=== PATIENT | male | born 1950 | race Caucasian/White ===

== ENCOUNTER 2020-11-18 13:46 | Emergency (ER) | payer OTHER ==
[~2020-11-18] VITALS: Ht 180.3 cm; Wt 107.0 kg
[2020-11-18] MEDS ORDERED: LISINOPRIL20 MG PO (14:07)
[2020-11-18] MEDS ORDERED: CARDIZEM CD120 MG PO (16:51)
--- NOTE | 2020-11-19 16:04 | EKG ---
[facility] [address] [facility] [place], [place] [address] Signed Atrial flutter with 2:[address] elevation, consider inferior injury or acute infarct ACUTE NV / STEMI Abnormal ECG No previous ECGs available Confirmed by JOAHNN ROSS DO ([id number]) on 11/19/2020 4:04:07 PM Electronically Signed By: JOHANN ROSS DO 11/19/20 1604 PATIENT NAME: LOREN RAMOS Electrocardiogram DATE OF : 50 PHYSICIAN: JOHANN ROSS DO REPORT #: [id number] REPORT IS CONFIDENTIAL AND NOT TO BE RELEASED WITHOUT AUTHORIZATION
== END 2020-11-18 17:02 | disposition home or self-care (01) ==
LOC: ED 13:46
DX: I48.92 Unspecified atrial flutter (principal); J44.9 Chronic obstructive pulmonary disease, unspecified; Z87.891 Personal history of nicotine dependence; Z79.899 Other long term (current) drug therapy
CPT/HCPCS: 71045; 80053; 83735; 84484; 85025; 93005; 93010; 96374; 99285-25

== ENCOUNTER 2021-02-10 14:10 | Inpatient (IN) | payer MEDICARE, OTHER ==
[~2021-02-10] VITALS: Ht 180.3 cm; Wt 107.3 kg
[~2021-02-10 14:10] MED LIST: CARDIZEM CD120 MG PO; LISINOPRIL20 MG PO
--- NOTE | 2021-02-10 17:03 | EKG ---
[facility] [address] [address] Signed Normal sinus rhythm Rightward axis Borderline ECG When compared with ECG of 18-NOV-2020 14:03, Sinus rhythm has replaced Atrial flutter Vent. rate has decreased BY [address] no longer elevated in Inferior leads Confirmed by BRYAN CARDOZA MD ([id number]) on 02/10/2021 5:03:07 PM Electronically Signed By: BRYAN CARDOZA MD 02/10/21 1703 PATIENT NAME: LOREN RAMOS Electrocardiogram DATE OF : 50 PHYSICIAN: BRYAN CARDOZA MD REPORT #: [id number] REPORT IS CONFIDENTIAL AND NOT TO BE RELEASED WITHOUT AUTHORIZATION
--- NOTE | 2021-02-10 20:27 | NUR ---
SHIFT REPORT RECEIVED FROM ADRIENNE MORA. PT IS ALERT/ORIENTED, DENIES PAIN. LUNGS DIM THROUGHOUT, DENIES SOB AND CHEST PAIN, 6L O2 VIA NC IN PLACE, HUMIDIFICATION ADDED BY R.T. HR REGULAR, RATE 80'S. BOWEL TONES ACTIVE, DENIES NAUSEA. PT VOIDED 300ML USING URINAL. SKIN GROSSLY INTACT, ABRASION TO LEFT HAND, PT STATED HE TRIPPED OVER A TOOLBOX AT HOME. 2+EDEMA AND REDNESS NOTED TO BLE. LIMBS ARE COOL, PERPHERAL PULSES STRONG, CAP REFILL SLIGHTLY DELAYED IN BLE. PLAN OF CARE DISCUSSED WITH PT, QUESTIONS ANSWERED. PT DENIES FURTHER NEEDS AT THIS TIME, CALL LIGHT WITHIN REACH.
--- NOTE | 2021-02-10 20:40 | NUR ---
PT DESATURATING TO 85%, SWITCHED OXYGEN TO 8L OXYMASK.
--- NOTE | 2021-02-10 21:20 | NUR ---
375ML URINE EMPTIED FROM URINAL. PT RESTING, CONTINUES TO DENY NEEDS. SPO2:91% ON 8L OXYMASK.
--- NOTE | 2021-02-10 21:55 | NUR ---
IN TO ADJUST PULSE OX, SWITCHED TO STICKER PROBE. URINAL EMPTIED, URINE APPEARING MORE DILUTE IN COLOR. PT STATES THAT HE IS RESTING WELL AND BREATHING EASILY. DENIES FURTHER NEEDS.
--- NOTE | 2021-02-11 00:15 | NUR ---
ASSESSMENT COMPLETED. PT CONTINUES TO DENY PAIN AND STATES HE FEELS THAT HE IS RESTING WELL. LUNGS REMAIN DIM, 8L O2 VIA OXYMASK IN PLACE, DENIES CHEST PAIN AND SOB. DENIES NAUSEA. EXTREMITIES FEEL WARM TO TOUCH NOW AND CAP REFILL NO LONGER APPEARS DELAYED IN BLE. EDEMA UNCHANGED TO BLE. IV INTACT, SALINE LOCKED. PT DENIES NEEDS AT THIS TIME, CALL LIGHT WITHIN REACH.
--- NOTE | 2021-02-11 01:59 | NUR ---
PT RESTING WITH EYES CLOSED, NO APPARENT DISTRESS. RESPIRATIONS EVEN AND UNLABORED. VITAL SIGNS STABLE.
--- NOTE | 2021-02-11 02:16 | NUR ---
PT SPO2 WAS 86-88%, INCREASED OXYGEN TO 9L AND SPO2 NOW 92%.
--- NOTE | 2021-02-11 04:50 | NUR ---
ASSESSMENT COMPLETED AND UNCHANGED. PT REPORTS RESTING COMFORTABLY AND DENIES ANY COMPLAINTS. OXYGEN REMAINS AT 9L VIA NC.
--- NOTE | 2021-02-11 07:26 | NUR ---
RECIEVED REPORT FROM COMPLIANCE TECHNICIAN. PT LAYING IN HIS BED WITH MONISHA AT BED SIDE. PT AWAKE WITH HEAD OF BED ELEVATED. ORDERED BREAKFAST. PT OXYGEN LEVELS DROP TO MID 80S WITH EXERTION OF TALKING. ASSISTED PT IN USING BEDSIDE URINAL. PT REQUESTED TO SIT UP IN THE CHIAR FOR BREAKFAST. NO OTHER CONCERNS AT THIS TIME. CALL LIGHT WITHIN REACH. WILL CONTINUE TO MONITOR CLOSELY FOR CHANGES.
--- NOTE | 2021-02-11 07:30 | NUR ---
PATIENT SHIFT REPORT RECIEVED FROM ELECTRICIAN WIRING RN. PATIENT RESTING I NBED AT THIS TIME. PATIENT REMAINS ON 9L OXYMASK. PATIENT CALLS APPROPRIATELY. WILL CONTINUE TO CLOSELY MONITOR.
--- NOTE | 2021-02-11 08:00 | NUR ---
PATIENT UP TO THE CHAIR WITH RN ASSIST. PATIENT STATES "I AM A LITTLE WEAK". PATIENT NOW RESTING IN THE CHAIR. REVIEWED PLAN OF CARE WITH PATIENT. SPOEK WITH RT HE WILL PLACE PATIENT ON THE HIGH FLOW OXYGEN CANNULA TO ALLOW PATIENT TO EAT BREAKFAST. PATIENT AGREEABLE WITH PLAN OF CARE. WILL CONTINUE TO CLOSELY MONITOR.
[2021-02-11] MEDS ORDERED: ASPIRIN EC325 MG PO (09:16)
[2021-02-11] MEDS ORDERED: DILTIAZEM 24HR120 MG PO (09:16)
--- NOTE | 2021-02-11 09:35 | NUR ---
Pt lives in [place] in his 2 story home with his life partner Melonie. He uses both floors. Has hand rails. Does not use DME Pt. would like to have a POLST form completed. Reviewed wishes and pt would like to have 2 rounds of cpr if in the hospital; otherwise, if at home or downtown he does not want anything done. Does not want a feeding tube or a intubation. 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 Plans on dc to home.
--- NOTE | 2021-02-11 10:00 | NUR ---
PATIENT BACK TO BED FOR AN ECHO AT THIS TIME. WILL CONTINUE TO CLSOELY BENIGNO.
--- NOTE | 2021-02-11 10:08 | NUR ---
ASSISTED PT TO BED FROM CHAIR. PT OXYGEN DROPPED TO 89% WHILE GETTING UP AND MOVING FROM CHAIR TO BED. REQUESTED PT TAKE A FEW DEEP BREATHS AND OXYGEN WENT UP TO 92%. IMAGING IN WITH PT TO DO A ECHO. CALL LIGHT WITHIN [facility]. NO CONCERNS AND QUESTIONS AT THIS TIME. WILL CONTINUE TO MONITOR CLOSELY.
--- NOTE | 2021-02-11 10:53 | NUR ---
ASSISTED PT WITH MEDICATION TO HELP REDUCE HIS POTATIUM LEVEL. READ MENU TO PATIENT AND ORDERED PT LUNCH. PT REQUESTED ASSSISTANCE TO THE CHAIR FOR LUNCH. REMINDED PT TO CONTINUE BREATHING THROUGH HIS NOSE AND NOT HIS MOUTH. PT STRUGGLES WITH KEEPING OXYGEN PROBE IN PLACE ANS SWITCHED TO A PROBE ON PATIENTS EAR. CALL LIGHT WITHIN REACH. WILL CONTINUE TO MONITOR CLOSELY.
--- NOTE | 2021-02-11 12:30 | NUR ---
PATIENT SITTING UP IN THE CHAIR AT THIS TIME. PATIENT VISITING WITH STAFF. ALL QUESTIONS ANSWERED. BLOOD SUGAR DONE AND LUNCH AT THE BEDSIDE. WILL CONTINUE TO CLOSELY MONITOR.
--- NOTE | 2021-02-11 13:30 | NUR ---
PATIENT REPORT GIVEN TO LATOYA DELEON. LATOYA WILL BE TAKING OVER CARE OF THIS PATIENT AT THIS TIME. WILL CONTINUE TO CLOSELY MONITOR.
--- NOTE | 2021-02-11 13:45 | NUR ---
PT APPEARS WEAK WHEN TRYING TO MOVE TO THE BEDSIDE COMMODE. ONE PERSON ASSIST. PT FOLLOWS DIRECTION WELL. CALL LIGHT WITHIN REACH.
--- NOTE | 2021-02-11 14:17 | NUR ---
PT WAS ABLE TO AMBULATE TO BEDSIDE COMMODE. PT DENIES ANY PAIN OR NAUSEA. PT SITTING BACK IN THE CHAIR. VITALS STABLE, NC AIRFLOW 9L, SP02 93%. CALL LIGHT WITHIN REACH.
--- NOTE | 2021-02-11 14:58 | NUR ---
PT ALERT, ORIENTED AND SITTING IN CHAIR USING O2 NC. PT SHARED THAT HE WANTS TO CONTINUE TRAVELING WITH IS SIG OTHER AFSHIN. PT WOULD OCCASIONALLY GET DETAILS CONFUSED-MOSTLY DATES AND TIMELINES. SHARED PAULETTE BACKGROUOND, WISHES HIS EXPERIENCE WOULD HAVE BEEN DIFFERENT. PT SAID HE DOESN'T PRAY BUT WANTED ME TO AND TO PRAY FOR PEOPLE-THEY NEED HELP.GAVE PT G.POST AND BLESSING. WILL CONTINUE TO FOLLOW
--- NOTE | 2021-02-11 15:45 | NUR ---
PT IS SLIGHTLY WEAK WHEN AMBULATING TO THE BEDSIDE COMMODE. LAYING BACK DOWN AND CPAP PLACED, SP02 96%. HANDS HAVE SLIGHT TREMOR/ SHAKING RANDOMLY WHEN AT REST. PT STATES IT HAS BEEN HAPPENING FOR ABOUT ONE MONTH. DENIES ANY PAIN OR NAUSEA. CALL LIGHT WITHIN REACH.
--- NOTE | 2021-02-11 15:47 | NUR ---
Heart Failure Nurse Note Spoke to patient and S.O. concerning daily heart failure,symptom monitoring, daily weights, rationale for low sodium diet, and med management. Has scales but he cannot read them due to vision changes. They agree to obtain new easy to read digital scales and monitor QAM. Unfamiliar with low sodium diet. Will give handouts on low sodium grocery list and flavor options. Do make most meals at home. Does not currently have formal method of remembering pills. Agrees to accept 7 day pill reminders. Will review Zones magnet with patient again. Recommend follow up within 7 days of DC This service will call patient post DC.
[2021-02-11] MEDS ORDERED: TRIAMCINOLONE A15 G1 TOP (15:55)
--- NOTE | 2021-02-11 15:56 | NUR ---
MED REC COMPLETE
--- NOTE | 2021-02-11 16:34 | NUR ---
PT ABLE TO AMBULATE FROM CHAIR TO BED TO ALLOW RT TO PLACE BIPAP ON PT FOR BREATHING TREATMENT. REPLACED OLD SOCKS WITH NEW SOCKS. PT IS SITTING UP IN BED. FAMILY MEMBER IN ROOM WITH HIM. CALL LIGHT WITHIN REACH. RT STILL IN ROOM WITH PT.
--- NOTE | 2021-02-11 18:00 | NUR ---
PT LAYING DOWN, DAUGHTER SALEEM IN THE ROOM. REPLACED CPAP WITH 9L NC. CALL LIGHT WITHIN REACH. SALEEM GIVEN FULL UPDATE, ALL QUESTIONS ANSWERED.
--- NOTE | 2021-02-11 20:15 | NUR ---
SHIFT REPORT RECEIVED FROM ADRIENNE KLEIN. PT CALLED NEEDING TO HAVE BM. UP TO BSC WITH SBA AT THIS TIME. CALL LIGHT WITHIN REACH, PT WILL CALL WHEN FINISHED.
--- NOTE | 2021-02-11 20:30 | NUR ---
PATIENT HAD MEDIUM SIZE LIQUID STOOL. PATIENT BACK IN BED. REQUESTING A SNACK. GEOTHERMAL OPERATIONS MANAGER DELIVERED PM SNACK. PATIENT SITTING UNRIGHT IN BED. O2 IN PLACE. CALL LIGHT IN REACH.
--- NOTE | 2021-02-11 21:13 | NUR ---
ASSESSMENT COMPLETED. PT SEEMS SOMEWHAT FORGETFUL TONIGHT, REPEATS QUESTIONS BUT IS OTHERWISE ORIENTED. DENIES PAIN. LUNGS DIM THROUGHOUT, 9L VIA HIGH FLOW NC IN PLACE, DENIES SOB. HR REGUALR, RATE 100-108. BOWEL TONES ACTIVE, DENIES NAUSEA. SKIN GROSSLY INTACT, EDEMA PRESENT IN BLE. EVENING MEDICATIONS TAKEN WITHOUT ISSUE, FRESH ICE WATER PROVIDED. FINSHED 100% OF SANDWICH BOX. PT DENIES FURTHER NEEDS AT THIS TIME, CALL LIGHT WITHIN REACH. LIGHTS DIMMED PER REQUEST.
--- NOTE | 2021-02-11 22:06 | NUR ---
PT DESATURATED TO 84% WITH NC REMAINING IN PLACE. PT AGREEABLE TO WEARING CPAP AT THIS TIME.
--- NOTE | 2021-02-12 00:42 | NUR ---
PT CALLED, WOKE UP SLIGHTLY CONFUSED STATES "I'M TRYING TO FIGURE OUT IF I'M ALIVE OR ." PT ANSWERS ALL QUESTIONS APPROPRIATELY AND IS ORIENTED X4. USED URINAL AND LAYED BACK DOWN IN BED. BIPAP IN PLACE, PT TOLERATING WELL. REMAINDER OF ASSESSMENT UNCHANGED. CALL LIGHT WITHIN REACH.
--- NOTE | 2021-02-12 01:54 | NUR ---
PT APPEARS TO BE SLEEPING AT THIS TIME, BIPAP REMAINS IN PLACE. NO APPARENT DISTRESS, RESPIRATIONS EVEN AND UNLABORED.
--- NOTE | 2021-02-12 02:19 | NUR ---
SPO2 NOTED TO BE 86-88% WHILE ON BIPAP. INCREASED FIO2 TO 50% AND NOTIFIED R.T.
--- NOTE | 2021-02-12 04:44 | NUR ---
PT NEEDED TO USE BATHROOM, UP TO BSC WITH SBA. HAD MEDIUM SIZED LIQUID STOOL AND VOIDED 300ML. ASSESSMENT COMPLETED. PT BACK ON HIGH FLOW NC AT 9L WITH HUMIDITY. CONTINUES TO DENY SOB. LUNGS SOMEWHAT MORE COARSE IN UPPERS, OTHERWISE ASSESSMENT UNCHANGED. WARM BLANKET PROVIDED PER REQUEST. CALL LIGHT WITHIN REACH.
--- NOTE | 2021-02-12 06:11 | NUR ---
PT RESTING IN BED, 9L O2 VIA HIGH FLOW NC REMAINS IN PLACE. NO APPARENT DISTRESS, RESPIRATIONS EVEN AND UNLABORED.
--- NOTE | 2021-02-12 07:16 | NUR ---
PT CALLED, UP TO CHAIR WITH SBA. URINAL EMPTIED. PT'S SON IN ROOM VISITING. PT'S DAUGHTER CALLED AND UPDATE GIVEN
--- NOTE | 2021-02-12 08:00 | NUR ---
PT IS ALERT AND ORIENTED SITTING UP IN THE CHAIR. SON DESHAWN IN THE ROOM WITH HIM. PT IS EATING HIS BREAKFAST INDEPENDENTLY. LINENS CHANGED, NEW SOCKS PLACED. CALL LIGHT WITHIN REACH. NO DESIRE TO VOID AT THIS TIME. PT STATES HE FEELS A LOT BETTER AFTER USING CPAP AT NIGHT TIME. PT HAS NC 9L, SP02 96%. PT DENIED NAUSEA OR PAIN.
--- NOTE | 2021-02-12 10:12 | NUR ---
pt o2 turned down to 6L via high flow NC from 9L. pt o2 sats are 96%
--- NOTE | 2021-02-12 10:16 | NUR ---
AT APROX 1000 PT SHOWED SVT, NOTIFIED. 5MG IV LOPPRESSOR GIVEN PER ORDERS AT 1005. HR CONVERTED BACK TO AFIB. WITH RATE CONTROLLED 90'S-100'S. PT DENIES ANY SYMPTOMS. VITALS ARE WNL AT THIS TIME.
--- NOTE | 2021-02-12 11:04 | NUR ---
manual bp taken 100/68 on rt arm.
--- NOTE | 2021-02-12 12:05 | NUR ---
PT SP02 88%, INCREASED NC FROM 6L TO 7L. SP02 93%. PT SITTING UP IN CHAIR. CALL LIGHT WITHIN REACH.
--- NOTE | 2021-02-12 12:20 | NUR ---
PT SITTING UP IN CHAIR, COOPERATIVE AND ABLE TO FOLLOW DIRECTIONS WHEN PERFORMING HIS ASSESSMENT. URINAL EMPTIED. PT IS EATING LUNCH. CALL LIGHT WITHIN REACH.
--- NOTE | 2021-02-12 12:44 | NUR ---
PT SP02 STATS DECREASED TO 85-88% WHILE EATING. INCREASED NC FROM 7L TO 9L WHILE HE EATS. SP02 91%. PT SITTING UP AT HIS CHAIR. CALL LIGHT WITHIN REACH.
--- NOTE | 2021-02-12 15:59 | NUR ---
PT WEAK WHEN AMBULATING FROM CHAIR TO BED. SP02 DROPPED TO HIGH 70'S DURING AMBULATION. RAISED NC TO 7L, SP02 94% AT THIS TIME. PT IN BED, CALL LIGHT IN REACH. IN ROOM. URINAL EMPTIED AND RECORDED.
--- NOTE | 2021-02-12 20:30 | NUR ---
SHIFT REPORT RECEIVED FROM SN LE AND ADRIENNE KLEIN. ASSESSMENT COMPLETED. PT WAS SLEEPING, WOKE EASILY WHILE I WAS IN ROOM. ORIENTED X4, DENIES PAIN, REPORTS FEELING TIRED. LUNGS DIM, 6L HIGH FLOW NC IN PLACE, SWITCHED TO BIPAP /8 @ 50% AFTER ASSESSMENT FOR SLEEP. HR IRREGULAR, RATE IN 90'S, SCHEDULED MEDS GIVEN. BOWEL TONES ACTIVE, DENIES NAUSEA. URINAL EMPTIED, URINE SLIGHTLY CONCENTRATED IN APPEARANCE. IV PATENT AND INTACT. DRESSING TO LEFT HAND CHANGED, SKIN TEAR CLEANSED WITH NS, BACITRACIN APPLIED, WOUND COVERED WITH NON-ADHERANT PAD AND ALLEVYN. 2+EDEMA TO BLE, PERIPHERAL PULSES STRONG, CAP REFILL SLIGHTLY DELAYED IN BLE. PT DENIES NEEDS AT THIS TIME. FRESH ICE WATER PROVIDED. CALL LIGHT WITHIN REACH.
--- NOTE | 2021-02-12 22:23 | NUR ---
PT APPEARS TO BE SLEEPING AT THIS TIME, BIPAP REMAINS IN PLACE. NO APPARENT DISTRESS, RESPIRATIONS EVEN AND UNLABORED. VITAL SIGNS STABLE.
--- NOTE | 2021-02-13 00:11 | NUR ---
PT CONTINUES TO SLEEP SOUNDLY WITH BIPAP IN PLACE, SETTINGS UNCHANGED. RESPIRATIONS EVEN AND UNLABORED, PT DOES NOT APPEAR IN ANY DISTRESS. VITAL SIGNS STABLE. WILL ALLOW FOR REST AND CONTINUE TO MONITOR.
--- NOTE | 2021-02-13 01:15 | NUR ---
PT CALLED NEEDING TO VOID. SWITCHED HIM FROM BIPAP TO 6L HIGH FLOW NC AND PT USED URINAL AT SIDE OF BED. PT CONTINUES TO DENY SOB OR PAIN. 0200 MEDS GIVEN NOW. PT BACK TO BED AND BACK ON BIPAP, SETTINGS UNCHANGED. WARM BLANKET PROVIDED PER REQUEST. CALL LIGHT WITHIN REACH.
--- NOTE | 2021-02-13 04:11 | NUR ---
PT APPEARS TO BE SLEEPING SOUNDLY AT THIS TIME WITH BIPAP IN PLACE. VITAL SIGNS STABLE. WILL DEFFER ASSESSMENT AT THIS TIME TO ALLOW FOR REST.
--- NOTE | 2021-02-13 05:20 | NUR ---
PT CALLED, READY TO TAKE OFF BIPAP. PLACED ON 6L HIGH FLOW NC. STANDING WEIGHT OBTAINED. ASSESSMENT COMPLETED AND UNCHANGED. FRESH ICE WATER AND A CUP OF COFFEE PROVIDED. PT DENIES FURTHER REQUESTS, CALL LIGHT WITHIN REACH.
--- NOTE | 2021-02-13 05:56 | NUR ---
INCREASED O2 TO 8L FOR SPO2 88%, SPO2 NOW 90%. URINAL EMPTIED.
--- NOTE | 2021-02-13 08:00 | NUR ---
PT SITTING AT THE SIDE OF BED EATING HIS BREAKFAST. SON DESHAWN IN THE ROOM WITH HIM. SP02 93% ON 8L NC WHILE HE EATS. PT STATES HE SLEPT WELL WITH CPAP MACHINE. SCHEDULED MEDICATIONS GIVEN. CALL LIGHT WITHIN REACH.
--- NOTE | 2021-02-13 09:00 | NUR ---
PT TRAY REMOVED BY SN. DEMARIO HESS IN THE ROOM. PT GIVEN A WARM WASH CLOTH FOR HIS FACE. APPLIED LOTION TO LEGS BILATERALLY. PT COOPERATIVE AND FOLLOWING DIRECTIONS WELL.
--- NOTE | 2021-02-13 11:20 | NUR ---
PT SITTING IN CHAIR, WAS ABLE TO USE THE URINAL. URINAL EMPTIED. KELSEY IN THE ROOM WITH HIM. DR. SCHULER IS IN UPDATING AND ASSESSING PT.
--- NOTE | 2021-02-13 12:00 | NUR ---
PT IN CHAIR EATING HIS LUNCH. DENIES PAIN OR NAUSEA. NO DESIRE TO VOID AT THIS TIME. SCHEDULED MEDICATIONS GIVEN. CALL LIGHT WITHIN REACH.
--- NOTE | 2021-02-13 13:10 | NUR ---
PT ABLE TO USE BEDSIDE COMMODE, SEEMS FATIGUES WHEN AMBULATING. PT BACK IN CHAIR. DENIES PAIN OR NAUSEA OR SOB. CALL LIGHT WITHIN REACH. WATER AT BEDSIDE TABLE.
--- NOTE | 2021-02-13 14:15 | NUR ---
FROM APPROXIMATLY 1340 TO 1405 PT UP AND AMBULATED TO ROOM 126 FOR SHOWER, PT ABLE TO SHOWER SELF WHILE SITTING IN SHOWER CHAIR. PT ON 4L O2 VIA REGULAR NC DURING THIS ACTIVITY. PT NOTED TO HAVE INCREASED WOB WITH ACTIVITY, HOWEVER IS ABLE TO EDDIE. ALL LINENS CHANGED ON BED AND IN CHAIR.
--- NOTE | 2021-02-13 15:12 | NUR ---
PT IV SITE IS INTACT, NO REDNESS OR SWELLING NOTED, FLUSH INFUSES EASILY, 80 MG IV LASIX GIVEN. PT ALERT AND ORIENTED X4, COOPERATIVE. PT DENIES PAIN AND NAUSEA. SOB NOTED WITH ACTIVITY, NONE WHILE AT REST.
--- NOTE | 2021-02-13 15:15 | NUR ---
PT O2 TITRATED DOWN TO 5L VIA HIGH FLOW NC.
--- NOTE | 2021-02-13 15:32 | NUR ---
PT ABLE TO AMBULATE ONE LAP IN THE HALLWAY WITH STANDBY ASSIST AND WALKER FOR BALANCE. PT ON 4L O2 VIA NC DURING AMBLATION, O2 SATS WERE LOW A 83% AND HIGH 90%.
--- NOTE | 2021-02-13 16:14 | NUR ---
PT SITTING UP IN CHAIR. SITTING IN THE COUCH NEXT TO HIM. VERBALLY SPOKE TO PATIENT ABOUT GOALS WITH AMBULATION. PT VERBALIZED UNDERSTANDING. COOPERATIVE WHEN PERFORMING ASSESSMENT AND ABLE TO FOLLOW DIRECTIONS. PT SEEMS FATIGUED AND TIRED. PT DENIES PAIN. CALL LIGHT WITHIN REACH.
--- NOTE | 2021-02-13 16:32 | NUR ---
PT ABULATED WITH SBA DOWN THE CCU HALLWAY AND BACK. PLACED ON 4L ON REGULAR NASAL CANULA. 02 STATS DECREASED TO THE MID 70S DURING AMBULATION. PT WAS SLIGHTY UNSTEADY DURING ACTIVITY, INCREASED SOB. PT BACK IN CHAIR. NC HIGH FLOW 5L PLACED BACK ON, SP02 91%. IN THE ROOM WITH HIM. PT DENIES CHEST PAIN, BUT STATES HE IS OUT OF BREATH BUT IT IS TOLERABLE. CALL LIGHT WITHIN REACH. PT WAS ABLE TO AMBULATE A FURTHER DISTANCE THAN THE PREVIOUS ACTIVITY.
--- NOTE | 2021-02-13 16:58 | NUR ---
PT TITRATES DOWN FROM 5L HF NC TO 4L HF NC. SPO2 94% AT THIS TIME. WILL CONTINUE TO MONITOR. VERBALIZED GOAL FOR AMBULATION ACTIVITY AND OXYGEN LEVEL GOALS. PATIENT AND VERBALIZED UNDERSTANDING.
--- NOTE | 2021-02-13 17:45 | NUR ---
PT READY FOR AMBULATION ACTIVITY DOWN THE [place]OL[place]. 4L REGULAR NC PLACED. PATIENT USING WALKER WITH SBA WITH CHORDS AND O2 TANK. PT STEADY AND WALKING FAST PACED. PT DESTATS TO MID 70S DURING ACTIVITY. PT BACK IN ROOM, 4L HF NC PLACED. PT IS BACK IN BED LAYING DOWN. PT FATIGUED WITH INCREASED SOB. DEEP BREATHING ENCOURAGED. CALL LIGHT WITHIN REACH.
--- NOTE | 2021-02-13 19:35 | NUR ---
REPORT RECEIVED FROM INA RN, WILL CONTINUE PLAN OF CARE.
--- NOTE | 2021-02-13 20:10 | NUR ---
THIS RN IN TO ASSESS PT AND ADMINISTER ORDERED MEDICATIONS. PT LAYING IN BED ALERT AND ORIENTED ON 4L O2 NC. PT REPORTS NO PAIN OR SOB. MEDICATIONS ADMINISTERED (SEE MAR) AND PT ASSESSMENT COMPLETE AT THIS TIME. LUNGS SOUND DIMINISHED IN ALL REGIONS, EDEMA PRESENT IN LOWER LEGS BILAT. PT DENIES NUMBNESS OR TINGLING. PT REPORTS NO FURTHER NEEDS AT THIS TIME WHEN ASKED. CALL LIGHT IN REACH, BED IN LOWEST POSITION. PT ON 4L O2 NC. WILL CONTINUE PLAN OF CARE.
--- NOTE | 2021-02-13 20:30 | NUR ---
THIS RN IN TO CHECK ON PT. PT SITTING AT THE SIDE OF THE BED ALERT AND ORIENTED AND HAD JUST FINISHED VOIDING INTO THE URINAL. HEART LEADS REPLACED AT THIS TIME DUE TO POOR READINGS. PT DENIES ANY SOB OR LIGHTHEADEDNESS AT THIS TIME WHILE ON THE 4L O2 NC. PT NOW LAYING IN BED AND REPORTS NO FURTHER NEEDS WHEN ASKED. WILL CONTINUE PLAN OF CARE. CALL LIGHT IN REACH, BED IN LOWEST POSITION.
--- NOTE | 2021-02-13 23:57 | NUR ---
RESPONDED TO PT CALL LIGHT. PT SITTING AT SIDE OF BED AND HAD FINISHED USING THE URINAL. PT STATED HE HAD VOIDED AND WANTED TO ENSURE THAT HIS BIPAP WAS ON CORRECTLY BEFORE GOING BACK TO SLEEP. PT ASSESSED AT THIS TIME AND VITALS TAKEN. PT DENIES PAIN AT THIS TIME OR SOB. PT REPORTED NO FURTHER NEEDS AND WENT BACK TO SLEEP AFTER BEING ASSESSED. CALL LIGHT IN REACH, BED IN LOWEST POSITION, WILL CONTINUE PLAN OF CARE.
--- NOTE | 2021-02-14 02:21 | NUR ---
THIS RN IN TO ADMINISTER ORDERED MEDICATIONS. PT SLEEPING IN BED ON BIPAP. PT AWOKE EASILY AND WAS ABLE TO TAKE PO MEDICATIONS. PT DENIES PAIN WHEN ASKED AT THIS TIME. PT PLACED BACK ON BIPAP AT THIS TIME AND RETURNED TO SLEEP. SPO2 AT 96% ON BIPAP AT 50% FIO2. PT REPORTED NO FURTHER NEEDS WHEN ASKED ASIDE FROM HELPING HIM COVER BACK UP WITH BLANKETS. PT NOW LAYING IN BED ON BIPAP, BED IN LOWEST POSITION, CALL LIGHT IN REACH. WILL CONTINUE PLAN OF CARE.
--- NOTE | 2021-02-14 03:55 | NUR ---
patient up to bedside to use urnal. patient tolerated well. back on cpap and resting with hob elevated. call light in reach.
--- NOTE | 2021-02-14 06:41 | NUR ---
THIS RN IN TO ASSESS PT. PT LAYING IN BED AWAKE AND ALERT ON BIPAP. PT REPORTS NO PAIN WHEN ASKED AND DENIES SOB. VITALS TAKEN AND ASSESSMENT COMPLETED AT THIS TIME. NEW ALLEVYN PLACED ON PTS SKIN TEAR IN THE LEFT HAND. SKIN UNDER TEAR CONTAINS NO DRAINAGE. PT VOIDED AFTER ASSESSMENT INTO URINAL AND SAT UP ON SIDE OF THE BED. HR MAINTAINED IN THE 70-80'S. PT DENIED LIGHTHEADEDNESS AND DIZZYNESS WHEN DOING SO. SPO2 STATED LOW 80% BUT WAVEFORM WAS POOR. ONCE PT WAS RESTING SPO2 READ IN THE MID 90%. PT NOW BACK IN BED AWAKE AND ALERT ON BIPAP. PT REPORTS NO FURTHER NEEDS WHEN ASKED, SPO2 AT 99%. WILL CONTINUE PLAN OF CARE. CALL LIGHT IN REACH, BED IN LOWEST POSITION.
--- NOTE | 2021-02-14 07:32 | NUR ---
pt off bipap on nc high flow 6L. pt's son is at the bedside. pt alert and oriented x4.
--- NOTE | 2021-02-14 08:08 | NUR ---
PT SITTING UP IN BED, SON DESHAWN IN THE ROOM. ASSESSMENT AND VITALS OBTAINED. PT ABLE TO STAND ON STANDING SCALE FOR WEIGHT RECORDING. NEW WEIGHT CHARTED AND PLACED ON PT BOARD IN ROOM. PT ABLE TO AMBULATE WITH SBA TO THE CHAIR. ABULATED WELL, PT STEADY DURING ACTIVITY.
--- NOTE | 2021-02-14 09:30 | NUR ---
PT SITTING UP IN BED, SCHEDULED MEDS GIVEN. IN ROOM. NO DESIRE TO VOID AT THIS TIME. PT ATE ALL OF HIS BREAKFAST. BREAKFAST TRAY REMOVED. WATER CUP AT BEDSIDE TABLE.
--- NOTE | 2021-02-14 10:26 | NUR ---
PT SITTING UP IN CHAIR. IN THE ROOM. DR. SCHULER IN TO SPEAK TO PATIENT AND . TITRATED HF NC FROM 6L TO 5L, SP02 94% AT THIS TIME. WILL CONTINUE TO TITRATE DOWN EVERY 10 MINUTES PER MD ORDERS AND CONTINUE TO MONITOR. VERBALIZED AMBULATION ACTIVITY WITH PT, PT VERBALIZED AND UNDERSTANDING OF DAY PLAN. ALL QUESTIONS ANSWERED.
--- NOTE | 2021-02-14 10:42 | NUR ---
TITRATED HIGH FLOW NC FROM 5L TO 4L. SP02 93%. PT SITTING UP IN CHAIR. CALL LIGHT WITHIN REACH.
--- NOTE | 2021-02-14 11:00 | NUR ---
PT READY FOR AMBULATION ACTIVITY. PT USES WALKER WITH SBA. 4L REGULAR NC PLACED DURING ACTIVITY. PT SLIGHTY WALKS STEADY, SLOWER PACED. 02 STATS HIGH 80'S DURING ACTIVITY. PT WALKED DOWN CCU HALLWAY AND BACK TO HIS ROOM. PT HAS SLIGHT INCREASE SOB, RECOVERS WELL. SWITCHED BACK TO 4L HF NC. SP02 91%. PATIENT DENIES PAIN. PT SITTING IN CHAIR. CALL LIGHT WITHIN REACH. DEEP BREATHING ENCOURAGED.
--- NOTE | 2021-02-14 13:00 | NUR ---
PT HAS REMAINED ON 4L HF NC, DURING AMBULATION ACTIVITY IS SWITCHED TO 4L REGULAR NC. SP02% MID TO HIGH 80'S DURING ACTIVITY. PT ABLE TO CONTROL HIS PACE AND BREATHING. PT AMBULATED WITH SBA OF NURSE AND STUDENT NURSE WITH CHORDS. PT WALKED STEADY DOWN THE CCU HALLWAY AND BACK TO CHAIR. PT PLACED BACK ON 4L HF NC SP02 95%. PT DENIES PAIN. CALL LIGHT WITHIN REACH.
--- NOTE | 2021-02-14 13:58 | NUR ---
PT TITRATED DOWN FROM 4L HF NC TO 3L HF NC, SP02 93% AT THIS TIME. PT SITTING IN CHAIR. DEEP BREATHING ENCOURAGED.
--- NOTE | 2021-02-14 16:19 | NUR ---
[facility] SON DESHAWN IN ROOM WITH HIM. PT HAS 3L HF NC, SP02 92% AT THIS TIME. WILL CONTINUE TO MONITOR. PATIENT DENIES SOB. NO DESIRE TO VOID AT THIS TIME. PT WILL LIKE TO CONTINUE TO SIT IN THE CHAIT UNTIL SON LEAVES THEN HE WOULD LIKE TO WALK. CALL LIGHT WITHIN REACH.
--- NOTE | 2021-02-14 19:45 | NUR ---
PATIENT UP TO THE BATHROOM WITH [employer] ARCHITECT ASSIST. PATIENT DESAT ON 3L NC TO 84% AND HAD DIFFICULTY RECOVERING. INCREASED PATIENT'S O2 TO 8L NC. PATIENT SLOWING RECOVERED TO 90% O2 SAT. PATIENT SWITCHED TO TELE WITH O2 MONITORING. PROVIDED WITH WARM BLANKET. SITTING UP IN BED NOW WATCHING TV. DENIES OTHER NEEDS. CALL LIGHT IN REACH.
--- NOTE | 2021-02-14 20:49 | NUR ---
EVENING MEDS PROVIDED PER ORDER. VS STABLE. PATIENT TOLERATING 4L NC. DENIES FEELING SOB. UP TO THE BEDSIDE TO VOID. DENIES FURTHER NEEDS. MOVES EASILY. LUNG SOUNDS ARE CLEAR, DIM IN THE BASES. ENCOURGAED COUGH AND DEEP BREATHING.
--- NOTE | 2021-02-14 21:43 | NUR ---
PATIENT READY FOR BED. PLACED ON CPAP. TOLERATING WELL. HOB ELEVATED. CALL LIGHT IN REACH.
--- NOTE | 2021-02-14 23:11 | NUR ---
PATIENT UP TO THE BEDSIDE TO VOID. TITRATED TO 8L HIGH FLOW NC. PATIENT TOLERATED WELL WITH LESS DESATURATIONS, ONLY TO 88%. BACK ON BIPAP. HOB ELEVATED.
--- NOTE | 2021-02-15 01:19 | NUR ---
PATIENT UP TO BEDSIDE. VOIDED 350 MLS. PATIENT IS IN GOOD SPIRITS, STATED " I FEEL LIKE I HAVE SOME CONTROL BACK. LIKE I'M GOING TO GET OUT OF HERE SOON."
--- NOTE | 2021-02-15 04:00 | NUR ---
PATIENT REPORTS FEELING VERY WELL THIS MORNING. IS SITTING UP IN BED WATCHING TV. BIPAP OFF AT THIS TIME. TOLERATING 6L NC IN BED, DESATS WITH STANDING AT BEDSIDE TO VOID. LUNG SOUNDS ARE DIMINISHED THORUGHOUT. VS STABLE. IV SITE LEAKING. NEW SITE ESTABLISHED IN RIGHT FOREARM. BUMEX INFUSING PER ORDER. FRESH ICE WATER PROVIDED.
--- NOTE | 2021-02-15 09:10 | NUR ---
IN PATIENT'S ROOM HE IS HAVING ADDITIONAL BLOOD DRAWN THIS AM. PT'S SON IN ROOM WITH HIM. EXTENSIVE DISCUSSION REGARDING CHF AND DIAGNOSIS. PT STATES HE IS FEELING GOOD, BETTER THIS AM, THAN HE HAS BEEN AND IS EAGER TO CONTINUE IMPROVING. BUMEX GTT CONTINUES AT 0.5 MG/HR = 2ML/HR. WILL CONTINUE TO MONITOR.
--- NOTE | 2021-02-15 10:28 | NUR ---
firewall security engineer offered to give pt bed bath and do hair. Pt. refused said he is fine for now maybe tomorrow. firewall security engineer will check back in with pt. later today. no other needs at this time
--- NOTE | 2021-02-15 13:06 | NUR ---
COMPRESSION SOCKS APPLIED TO PATIENT'S LOWER LEGS. PT TOLERATED WELL. PT REMAINS SITTING IN CHAIR AND OXYGEN IS 95% ON 5 L, THEREFORE TURNED DOWN TO 4 L AT THIS TIME. PT REMAINS OFF BUMEX GTT AND WILL HAVE ANOTHER VBG AT 1800 THIS EVENING. PT REMAINS ON TELE #10 IN AN ATRIAL FLUTTER, RATES RANGING FROM 70-80s. CONTINUE TO MONITOR.
--- NOTE | 2021-02-15 14:07 | NUR ---
PT SITTING UP IN CHAIR, ALERT, ORIENTED AND O2 NC IN USE. PT LOOKS AND SOUNDS BETTER, HE ACKNOWLEDGED. THANKED ME FOR STOPPING BY. GAVE BLESSING.WILL FOLLOW NEEDED
--- NOTE | 2021-02-15 15:50 | NUR ---
REPORT GIVEN TO DANN ON MED/SURG AND PATIENT TRANSFERRED TO ROOM 116. PT ABLE TO AMBULATE OVER TO ROOM ON 5 L NC AND TOLERATED THIS WELL. WILL CONTINUE TO MONITOR.
--- NOTE | 2021-02-15 16:19 | NUR ---
ASSUMED CARE OF PT. PT AMBULATED FROM CCU 127 TO ROOM 116 ON MS. PT ORIENTED TO ROOM. PT'S SON AT BEDSIDE.
--- NOTE | 2021-02-15 17:27 | NUR ---
ROUNDED ON PT; PT UP IN CHAIR EATING DINNER. PT ASKS ABOUT FLUID RESTRICTION; EDUCATED ABOUT TOTALS LEFT FOR THE DAY. NEW TV REMOTE LOCATED FOR PT. PT IS JOVIAL AND IN GOOD SPIRITS. PT'S IN ROOM. CALL LIGHT WITHIN REACH.
--- NOTE | 2021-02-15 17:40 | NUR ---
EMPTIED URINAL FOR PATIENT. PATIENTS CALL LIGHT IN REACH NOTHING ELSE NEEDED AT THIS TIME
--- NOTE | 2021-02-15 18:17 | NUR ---
ASSISTED PT TO BED; PT HAD EATEN A LARGE PORTION OF HIS DINNER. LAB DRAW COMPLETED. ASSESSMENT COMPLETE. PT'S LEAVES TO GO HOME AT THIS TIME. CALL LIGHT WITHIN REACH.
--- NOTE | 2021-02-15 18:25 | NUR ---
TELE MONITOR SP02 SHOWS 86% ON 4L NC. HOB ELEVATED MORE, O2 INCREASED TO 5L AND NC PLACED MORE CENTERED IN NARES. PT RECOVERS TO 94% ON 5L.
--- NOTE | 2021-02-15 19:25 | NUR ---
BEDSIDE REPORT RECEIVED FROM ADRIENNE QUIGLEY. pt SLEEPING, SPO2 96% ON TELE CPOX, HR 70. 5L OXYGEN BY NC IN PLACE. CALL LIGHT IN REACH.
--- NOTE | 2021-02-15 21:40 | NUR ---
V/S AND I&O'S DONE. WARM BLANKET PROVIDED. NO OTHER NEEDS.
--- NOTE | 2021-02-15 21:45 | NUR ---
pt SITTING UP IN BED AWAKE. ASSESSMENT COMPLETE. TELE [address], SR 75. CPAP APPLIED AT THIS TIME. CALL LIGHT IN REACH. LIGHTS OFF IN ROOM.
--- NOTE | 2021-02-16 00:40 | NUR ---
CHECKED ON pt. RESTING IN BED WITH BIPAP ON. RR 16. SPO2 98% ON TELE CPOX.
--- NOTE | 2021-02-16 02:15 | NUR ---
CALL LIGHT ANSWERED. BIPAP REMOVED, 5L OXYGEN BY NC APPLIED. pt TO SIDE OF BED FOR VOID AND BACK IN BED. ASSESSMENT COMPLETE. pt STATES TOLERATING BIPAP WELL "I SLEPT REALLY GOOD". EXPIRATORY WHEEZES AUSCULTATED BILATERALLY LOWER LOBES. pt DENIES SOB. RASHMI HOSE ON. BIPAP APPLIED. CALL LIGHT IN REACH.
--- NOTE | 2021-02-16 04:52 | NUR ---
CHECKED ON pt. RESTING IN BED WITH BIPAP ON. SPO2 98% ON BIPAP. EYES CLOSED, BREAHTING UNLABORED.
--- NOTE | 2021-02-16 05:45 | NUR ---
RN ENTERS ROOM AFTER SPO2 READING IN 70S ON TELE 9 CPOX MONITOR. OXYGEN OFF pt, 5L OXYGEN REAPPLIED. SPO2 INCREASES TO <90%. pt RESTING IN BED. VSS. CALL LIGHT IN REACH.
--- NOTE | 2021-02-16 08:12 | NUR ---
PT SITTING IN CHAIR, EATING BREAKFAST, O2 SATS 84-86% ON 5L NC, INCREASED TO 7L HIGH FLOW NC. PT GIVEN I/S AND INSTRUCTED ON USE, PT ABLE TO DEMONSTRATE PROPER USE.
--- NOTE | 2021-02-16 08:26 | NUR ---
PT WAS SITTING UP IN HIS CHAIR. MORNING ASSESSMENT COMPLETED. PT LUNG SOUNDS WERE DEMINISHED. HE HAS BEEN SATING IN THE HIGH 80S LOW 90S. HE WAS ON 5L NASAL CANNULA AND WE PUT HIM UP TO 7L NC. HE WAS EDUCATED ON USING AN IS. HE USED IT TWICE AND WAS TOLD TO DO IT 10 TIMES AN HOUR. MORNING MEDICATIONS PASSED. PT WAS EAGER TO LEARN AND ASKED QUESTIONS ABOUT HIS CARE. PT WAS WEARING TH AND HAS SOME EDEMA IN HIS LEGS. PT STATED IT HAS GONE DOWN AND HE CAN WIGGLE HIS TOES. PT IS ON TELLE #9. SINUS RHYTHM. PT WAS WAITNG FOR HIS SON AND BREAKFAST TO ARRIVE. NO FURTHER NEEDS AT THIS TIME.
--- NOTE | 2021-02-16 09:00 | NUR ---
Notified by Dr. Cramer, pt will need Bipap or Trilogy unit for dc to home. Called and spoke with [facility] and they are no longer doing the overnight oximetry. Called [facility] and they faced th [facility] order form. Form completed by Dr. Cramer and faxed to [facility].
--- NOTE | 2021-02-16 09:37 | NUR ---
PATIENT SITTING UP IN BED. VITALS AND I&O'S CHARTED. CALL LIGHT IN REACH. NOTHING ELSE NEEDED
--- NOTE | 2021-02-16 09:45 | NUR ---
THIS RN INTO ROOM, PATIENT AWAKE SITTING IN BED. PATIENT STATES HE IS FEELING BETTER OVERALL. DISCUSSED ONGOING OXYGEN NEED WITH THE PATIENT. PATIENT STATES HE DOES NOT USE 02 AT HOME IN THE PAST. PATIENT IS WOUNDERING IF HE WILL NEED A CPAP ON DISCHARGE. PER DR. SCHULER PATIENT WILL NEED BIPAP OR TRILOGY UPON DISCHARGE. REQUEST SENT FOR BIPAP SIGNED BY DR. SCHULER TO BE SENT TO [facility]. WILL CONTINUE TO FOLLOW UP WITH PATIENT.
--- NOTE | 2021-02-16 11:13 | NUR ---
PATIENT UP IN CHAIR. PATIENT STATES NOTHING IS NEEDED AT THIS TIME.
--- NOTE | 2021-02-16 11:23 | NUR ---
PT REQUESTING TO COME OFF BIPAP, PLACED ON 5L NC, IN ROOM. PT VOIDED 700ML. PT DENIES OTHER NEEDS AT THIS TIME.
--- NOTE | 2021-02-16 13:12 | NUR ---
PATIENT REFUSED SHOWER/ BED BATH/ SHAMPOO/ STATES HES COMBED HIS HAIR AND THATS FINE FOR TODAY.
--- NOTE | 2021-02-16 13:44 | NUR ---
UNABLE TO VISIT PT DUE TO AGP'S. WILL CHECK BACK AGAIN.
--- NOTE | 2021-02-16 14:07 | NUR ---
PT WAS GIVEN HIS SECOND DOSE OF FUROSIMIDE. PT TOLERATED THIS WELL. IV FLUSHED WITH 10ML NS. GOOD BLOOD RETURN. PT IS USING HIS BIPAP MACHINE AND TOLERATING IT WELL. PT STATED CONCERNS OF NOT WANTING TO . EDUCATION WAS PROVIDED TO THE PATIENT THAT HE IS DOING WELL AND SLOWLY GETTING BETTER. THIS SEEMED TO PUT THE PT AT EASE. NO FURHTER NEEDS AT THIS TIME.
--- NOTE | 2021-02-16 14:28 | NUR ---
PT AFTERNOON ASSESSMENT COMPLETED. LUNG SOUNDS WERE STILL DIMINISHED AND CRACKLES WERE HEARD IN HIS LOWER LOBES. RASHMI HOSE WERE REMOVED. NO FURTHER NEEDS AT THIS TIME.
--- NOTE | 2021-02-16 16:54 | NUR ---
PT OVERALL HAD A GOOD DAY. HE WAS ON 5L NC THIS MORNING SATING IN THE HIGH 80'S LOW 90'S. HE WENT ON HIS BIPAP FOR MOST OF THE DAY AND TOLERATED IT WELL. ONCE HE WAS OFF THE BIPAP HE WAS PUT ON 4L NC AND SATING IN THE LOW 90S. HIS LUNG SOUNDS WERE DIMINISHED WITH CRACKLES IN THE LOWER LOBES. PT HAD EDEMA IN HIS LOWER EXTREMITIES. FAN WAS DC BUT LEFT ON THE 02. RASHIM CRISTINA WERE DC'D WELL. PT IS ON DIURETICS TO HELP WITH SWELLING. PT IS A ONE PERSON STANDBY ASSIST. PT USES THE URINAL AT THE EDGE OF THE BED. PT IS ON A 1600 FLUID RESTRICTION. HE HAS A 22GA IV IN THE RIGHT FOREARM THAT IS SALINE LOCKED.
--- NOTE | 2021-02-16 17:48 | NUR ---
PT WAS HELPED UP TO THE BATHROOM. HE THEN GOT INTO BED FOR THE EVENING. PT IS BACK ON THE BIPAP MACHINE. PT IS RESTING IN BED. NO FURTHER NEEDS AT THIS TIME.
--- NOTE | 2021-02-16 19:24 | NUR ---
RECEIVED REPORT FROM ADRIENNE NGO. pt RESTING IN BED WITH BiPAP ON. CALL LIGHT WITHIN REACH.
--- NOTE | 2021-02-16 21:57 | NUR ---
IN TO DO ASSESSMENT. pt RESTING IN BED ON BiPAP. INSTRUCTED pt ON HOW TO REMOVE BiPAP, pt DEMONSTRATED SKILL. REPORTED HE IS FEELING BETTER THAN WHEN HE CAME IN. SATS MID 90'S ON 3L O2 VIA NC. ASSESSMENT DONE. LUNGS DIM. SWELLING NOTED IN BLE. pt REPORTED THAT LEFT TOES FEEL LESS TIGHT THAN THIS AM. RIGHT FOOT SWELLING MORE THAN LEFT. URINAL EMPTIED. DISCUSSED FLUID RESTRICTION AND PLAN OF CARE. ALL QUESTIONS ANSWERED. CALL LIGHT WITHIN REACH. pt PLACED BiPAP INDEPENDENTLY.
--- NOTE | 2021-02-17 02:07 | NUR ---
ROUNDED ON pt. RESTING IN BED WITH BiPAP ON. EYES CLOSED, RESPIRATIONS REGULAR AND UNLABORED. CALL LIGHT WITHIN REACH.
--- NOTE | 2021-02-17 03:34 | NUR ---
CALL LIGHT ON. pt OFF BiPAP, ASSISTED WITH NC 3L SATS 93%. BREAKFAST ORDERED. AM CARES DONE. ASSESSMENT DONE, NO CHANGES NOTED. SITTING ON BED WATCHING TV. CALL LIGHT WITHIN REACH.
--- NOTE | 2021-02-17 03:54 | NUR ---
SATS DROPPING TO 84%. pt WOKE TO VOICE. NC ON INCREASED TO 4L. pt STATES HE WANTS TO STAY AWAKE AND WATCH TV. REFUSED BiPAP AT THIS TIME. SATS 94%. CALL LIGHT WITHIN REACH.
--- NOTE | 2021-02-17 04:36 | NUR ---
RT IN TO DO ASSESSMENT. pt NOW ON BiPAP. RESTING IN BED WITH EYES CLOSED, RESPIRATIONS REGULAR AND UNLABORED. SATS 95%. CALL LIGHT WITHIN REACH.
--- NOTE | 2021-02-17 05:49 | NUR ---
SAT MONITOR OFF WHILE pt URINATED. VITALS DONE. DAILY WT. pt DENIES NEEDS AT THIS TIME. CALL LIGHT WITHIN REACH.
--- NOTE | 2021-02-17 08:15 | NUR ---
PT WAS SITTING UP IN THE CHAIR. LUNG SOUNDS WERE DIMINISHED BUT CLEAR IN ALL QUADRANTS. PT WAS ON 2L NC AND SATING IN THE LOW 90S. PT EDEMA WAS IMPROVING FROM YESTERDAY. PT STATED NO NUMBNESS OR TINGLING IN HIS EXTREMITIES. PT STATED NO PAIN. PT PLANS TO SHOWER TODAY. MORNING MEDICATIONS PASSED. SEE EMAR. PT HAD NO FURTHER NEEDS AT THIS TIME.
--- NOTE | 2021-02-17 09:36 | NUR ---
PATIENT UP IN CHAIR, SON IN ROOM. VITALS AND I&OS CHARTED. CALL LIGHT IN REACH. PLAN FOR SHOWER TODAY.
--- NOTE | 2021-02-17 12:51 | NUR ---
Received RX from [facility] for Trilogy unit. RX signed by Dr. Mclaughlin and returned by fax to [facility].
--- NOTE | 2021-02-17 12:54 | NUR ---
PT SITTING IN CHAIR-O2 NC IN USE. PT IS ALERT, ORIENTED AND SEEMS IN GOOD SPIRITS TODAY. PT MENTIONED HE FEELS MUCH BETTER, HOPES TO DC TOMORROW. PT HAD NOT USED O2 BEFORE, AND ANTICIPATES HE WILL DC WITH CPAP. ENCOURAGEMENT GIVEN TO PT. WILL FOLLOW NEEDED
--- NOTE | 2021-02-17 13:50 | NUR ---
It was my pleasure to take a short opportunity to visit with Mr Tran today regarding his care in the hospital. This visit was made bried secondary to Mr. Tran being on BiPAPP. Stacy Tran reports that he is happy with his care in the hospital, and he feels that he needs are being med. He has no quesitons or concerns at this time. Hopefully we can visit more when he is off BiPAPP and able to communicate more regularly.
--- NOTE | 2021-02-17 15:12 | NUR ---
AFTERNOON ASSESSMENT COMPLETED. LUNG SOUNDS DIMINISHED AND CLEAR. PT WAS ON BIPAP AND WE PUT HIM ON 1L NC HE IS TOLERATING IT OK. IN HIGH 80S LOW 90S. PT WAS GIVEN FUROSIMIDE. EDEMA IS SLOWLY IMPROVING IN HIS EXTREMITIES. PT STATED NO PAIN AT THIS TIME.
--- NOTE | 2021-02-17 18:15 | NUR ---
ANSWERED CALL LIGHT, PATIENT UPSET THAT HIS DINNER ISN'T HERE YET. THIS BOWLING BALL MARKER EXPLAINED DUE TO AMOUNT OF PATIENTS, KITCHEN WOULD BE MAKING 2 TRIPS. PATIENT ALSO STATES HE'S HAD TO REORDER MANY MEALS, AND WANTS TO MAKE SURE HIS BREAKFAST ORDER WENT THROUGH (TALKED TO ZACKERY, IT WASN'T) PATIENT NOT HAPPY WITH THAT ANSWER. "RIGHT HAND DOESN'T KNOW WHAT THE LEFT HAND IS DOING" RN MATI IN TO SEE PATIENT. DINNER DELIVERED @1800. THIS BOWLING BALL MARKER IN LATER FOR VITALS, PATIENT HAPPY WITH MEAL, APOLOGIZED FOR BEING UPSET. PATIENT NOW IN BED FOR EVENING, WILL CALL NIGHT RN FOR ASSISTANCE WITH BIPAP. CALL LIGHT IN REACH.
--- NOTE | 2021-02-17 19:49 | NUR ---
PATIENT SITTING IN BED WATCHING TV. PATIENT ASAKED THAT I COME BACK AFTER MY ROUNDS TO TALK WITH HIM. CALL LIGHT IS IN REACH.
--- NOTE | 2021-02-17 20:09 | NUR ---
PATIENT ASSESSMENT COMPLETE AND HE IS READY TO COME OFF THE NC AND GO ON THE BIPAP MACHINE. THIS WAS PLACED ON THE PATIENT AND HE IS GOING TO SLEEP. CALL LIGHT IS IN REACH.
--- NOTE | 2021-02-17 22:05 | NUR ---
PATIENT RESTING QUIETLY, EYES CLOSED, RESPIRATIONS REGULAR AND EVEN ON BIPAP, PATIENT IN SEMI-FOWLERS POSITION, CALL LIGHT IS IN REACH.
--- NOTE | 2021-02-18 | NUR ---
PATIENT'S TELE BATTERY CHANGED FOR HIS SPO2 READING. PATIENT'S URINAL DUMPED. CALL LIGHT IS IN REACH AND NO OTHER CARE NEEDS AT THIS TIME.
--- NOTE | 2021-02-18 02:03 | NUR ---
PATIENT RESTING QUIETLY WITH BIPAP ON. SATS 96% ON MONITOR. EYES ARE CLOSED, RESPIRATIONS REGULAR AND EVEN, AND CALL LIGHT IS IN REACH.
--- NOTE | 2021-02-18 03:18 | NUR ---
PATIENT RESTING QUIETLY WITH LIGHTS ON, EYES CLOSED, RESPIRATIONS REGULAR AND EVEN ON BIPAP, CALL LIGHT IS IN REACH.
--- NOTE | 2021-02-18 05:00 | NUR ---
PATIENT RESTING QUIETLY, EYES CLOSED, RESPIRATIONS REGULAR AND EVEN, CALL LIGHT IN REACH.
--- NOTE | 2021-02-18 06:10 | NUR ---
PATIENT HAS SLEPT WELL ON THE BIPAP MACHINE. VS HAVE BEEN STABLE. LUNG SOUNDS ARE ARE CLEAR AND DEMINISHED. PATIENT IS VOIDING WELL. PATIENT USING 1-2L/NC WHEN OF CPAP. ON 2L/NC AT THIS TIME WITH O2 SAT OF 94%. PATIENT SITTING UP AT THIS TIME IN BED AWAITING BREAKFAST. CALL LIGHT IS IN REACH.
--- NOTE | 2021-02-18 09:30 | NUR ---
REPORT RECEIVED FROM NIGHT RN AND PT. CARE RESUMED. PT. IS ALERT AND ORIENTED. HE IS UP IN THE CHAIR WITH SON IN THE ROOM. LUNGS ARE DIM. THROUGHOUT AND EXP. WHEEZING PRESENT IN JENNIFER. ON 2L NC AND O3 SAT. IS 93%. PT. DENIES PAIN. IV SITE WNL AND FLUSHES. EDEMA PRESENT BLE. DISCUSSED POC AND MEDICATIONS. PT. LEFT RESTING WITH CALL LIGHT IN REACH.
--- NOTE | 2021-02-18 14:14 | NUR ---
PT ALERT, ORIENTED AND CONNECTED WITH HIM HE AMBULATED IN [place] WITH SN. HE SEEMED CHEERFUL, SMILED HE WALKED. O2 NC IN USE BY PT. GAVE ENCOURAGEMENT. WILL CONTINUE TO FOLLOW
--- NOTE | 2021-02-18 14:30 | NUR ---
PATIENT ALERT AND ORIENTED. LUNGS DIM. IN LLL, RUL, RLL. EDEMA UNCHANGED IN BLE. IV SITE WNL. PT. ON 2L NC AND O2 SAT. IS 95%. WILL TRY TITRATING DOWN. AMBULATED ONE LAP AROUND THE UNIT AND 02 SAT DROPPED TO 87% ON 2L. PT. STATES COVID VACCINE CAUSED EDEMA AND SYMPTOMS. WHEN EDUCATED ABOUT CHF, PT. DENIED DIAGNOSIS AND SAID HE HAS NEVER HAD IT. FURTHER EDUCATION NEEDED. PT. LEFT RESTING IN BED WITH CALL LIGHT IN REACH.
--- NOTE | 2021-02-18 14:52 | NUR ---
PATIENT ADMITTED FOR COPD AND CHF EXACERBATION. THIS STUDENT NURSE ADMINISTERED 6ML OF FUROSEMIDE TO TREAT FLUID OVERLOAD. PATIENT'S OXYGEN SATURATION AT REST IS 92% ON 2 LITERS WITH NASAL CANNULA. PATIENT REQUESTED A WALK. PATIENT WALKED A FULL LAP WITH 2L OF OXYGEN AND CONTINUOUS PULSE OXIMETER PER DOCTORS ORDERS. DURING WALK PATIENT'S OXYGEN SATURATION DWINDLED TO LOW 82-84%. AFTER WALK PATIENT SAT ON EDGE OF BED AND TOOK DEEP BREATHS. PATIENTS O2 SATS CLIMBED UP TO 90S. PATIENT WAS REPOSITIONED BACK INTO BED IN HIGH FOWLERS POSITION. PATIENT DEMONSTRATED INCENTIVE SPIROMETER USE AND REACHED 600ML MULTIPLE TIMES. CALL LIGHT WITHIN REACH AND BED IN LOWEST POSTION. WILL CONTINUE TO MONITOR AND ENCOURAGE ACTIVITY TOLERATED.
--- NOTE | 2021-02-18 15:48 | NUR ---
02 TITRATED TO 1L AT 1448 AND 02 SAT REMAINED ABOVE 90%. O2 SAT DROPPED TO 85% ON MONITOR. WHEN CHECKED PATIENT WAS NAPPING. 02 TITRATED BACK TO 2L AND O2 INCREASED TO 91%. EDUCATED ON HEART FAILURE. PT. STATED HE WAS SCARED AND DID NOT REALIZE IT WAS PART OF HIS DIAGNOSIS. PT. REASSURED THAT WE WOULD CONTINUE TO PROVIDE EDUCATION.
--- NOTE | 2021-02-18 19:47 | NUR ---
RECEIVED REPORT FROM DAY SHIFT RN. PATIENT IS RESITNG IN BED. NO NEEDS NOTED. CALL LIGHT IN REACH.
--- NOTE | 2021-02-18 20:15 | NUR ---
ASSESMENT COMPLETED. PATIENT DENIES ANY PAIN OR SOB. EVENING MEDICATIONS GIVEN PER ORDER. PATIENT IS ON 2L VIA NC. VITALS TAKEN AND RECORDED. INTAKE AND OUPUT RECORDED. NO NEEDS NOTED. CALL LIGHT AND BELONGINGS ARE WITHIN REACH. PATIENT PLACING BIPAP ON WHEN THIS RN WAS EXITING ROOM.
--- NOTE | 2021-02-18 23:28 | NUR ---
PATIENT IS RESTING IN BED WITH EYES CLOSED, CPOX READS 96%. CALL LIGHT IN REACH.
--- NOTE | 2021-02-19 02:04 | NUR ---
PATIENT IS RESTING IN BED WITH EYES CLOSED, RR 17. OXYGEN SATURATION 95%. CALL LIGHT WITHIN REACH.
--- NOTE | 2021-02-19 03:11 | NUR ---
PAIENT IS RESTING IN BED WITH EYES CLOSED, CPOX READINGS ARE WNL. CALL LIGHT IN REACH.
--- NOTE | 2021-02-19 06:08 | NUR ---
PATIENT PLACED ON 2L VIA NC. ASSESMENT COMPLTED. VITALS TAKEN AND RECORDED. INTAKE AND OUPUT RECORDED. NO NEEDS NOTED. PATIENT DENIES ANY SOB. CALL LIGHT IN REACH.
--- NOTE | 2021-02-19 09:01 | NUR ---
Report received from ap operator nurse. Pt is up in recliner watching TV. Pt is alert and oriented. Pt is is on 1L NC with O2 saturation betweeN 90-92%. Vital signs within normal range. Assessment completed and morning medication administered per order. Lungs sounds are dimished througout. Edema present bilaterally in lower extremities and +1 in feet. Pt does not report shortness of breath. Encouraged incentive spirometer and activity. Pt is concerned about discharge instructions for home oxygen. Pt reports no pain. Will continue to monitor patient. Call light within reach.
--- NOTE | 2021-02-19 10:24 | NUR ---
REPORT RECEIVED FROM NIGHT RN AND PT. CARE RESUMED. PT. IS UP IN THE CHAIR, ALERT AND ORIENTED. AMBULATING SHORT DISTANCES INDEPENDENTLY IN THE ROOM. ON 1L O2 AND O2 SAT IS 92%. LUNGS DIM. THROUGOUT AND EXP. WHEEZES BILAT. IN UPPER LOBES. +1 EDEMA PRESENT BLE. IV SITE WNL AND FLUSHES WELL. PT. DENIES SOB. DISCUSSED HEART FAILURE, FLUID RESTRICTION, AMBULATION. PT. LEFT RESTING WITH CALL LIGHT IN REACH.
--- NOTE | 2021-02-19 11:10 | NUR ---
PER DR. CODY PFEIFFER TO ORDER O2 QUALIFIER. ORDER PLACED, LYNNETTE METAL TANK ERECTOR NOTIFIED.
--- NOTE | 2021-02-19 12:29 | NUR ---
PT ALERT, ORIENTED AND SITTNG IN CHAIR WITH HIS AT HIS SIDE. O2 NC IN USE, PT COMMENTED HE IS GETTING USE TO USING IT. ADJUSTING TO LIFESTYLE HE FEELS HE NOW MUST LIVE. HAD QUESTIONS ABOUT RECEIVING INFO ON LOW SODIUM DIET. WOULD LIKE TO PREPARE FOR HOME BEFORE DC. GRATEFUL FOR CARE HE HAS RECEIVED. INFORMED RN LYNNETTE, SHE WILL FOLLOW UP WITH DIET INFO. BLESSING GIVEN. WILL BE AVAILABLE NEEDED
--- NOTE | 2021-02-19 13:15 | NUR ---
TRILOGY UNIT DELIVERED FROM [facility] AND PT INSTRUCTED ON USE BY THEIR EMPLOYEE.
--- NOTE | 2021-02-19 14:13 | NUR ---
PT. UP IN THE CHAIR. ALERT AND ORIENTED. ADMIN IV LASIX AND DISCUSSED MEDICATION AND HEART FAILURE. LUNGS DIM THROUGHOUT. ON 1L NC AND O2 SAT. IS 93%. BREATHING IS UNLABORED. +1 EDEMA STILL PRESENT BLE AND PT. ENCOURAGED TO ELEVATE LEGS. IV SITE WNL. PT. MONITORING FLUID INTAKE WELL AND ASKING GOOD QUESTIONS ABOUT SELF-CARE
--- NOTE | 2021-02-19 16:11 | NUR ---
FIRE CONTROL ASSISTANT TOLD ME THAT HE DIDN'T WANT TO TAKE A SHOWER TODAY. I ALSO ASKED HIM IF HE WOULD LIKE TO CHANGE HIS GOWN AND HE SAID NO. ALSO I ASKED HIM IF HE WOULD LIKE TO USE SOME MOUTH WASH SINCE HE SAID HE HAD NO TEETH. HE SAID HE HAS BREATH MINTS.
--- NOTE | 2021-02-19 16:35 | NUR ---
Received [address] Mclaughlin notified and will write rx for 02. Face sheet, qualifier, rx, chart note faxed to [facility]. Called and confirmed [facility] is aware pt will dc tomorrow and will need o2 prior to dc. Gave them medsurg number and asked they call Charge nurse in the am.
--- NOTE | 2021-02-19 17:37 | NUR ---
ROUNDING ON PT. AND HE HAS HAD LESS THAN HALF OF HIS DAILY FLUID RESTRICTION. HE STATES HE IS INTENTIONALLY TRYING NOT TO DRINK. DISCUSSED DRINKING FLUIDS WITHIN PARAMETERS. HE IS EATING DINNER WITH AT BEDSIDE. DENIES FURTHER NEEDS.
--- NOTE | 2021-02-19 19:30 | NUR ---
SHIFT REPORT RECEIVED FROM DAYSHIFT ADRIENNE PALMER AT BEDSIDE, pt RESTING IN BED WITH EYES CLOSED. RR EVEN AND UNLABORED, 1LNC IN PLACE. CALL LIGHT IN REACH.
--- NOTE | 2021-02-19 20:10 | NUR ---
IN TO GET VITALS, NO FURTHER NEEDS AT THIS TIME, RN IN RM FOR MEDS
--- NOTE | 2021-02-19 20:28 | NUR ---
ASSESSMENT COMPLETE, SCHEDULED MEDS GIVEN (SEE EMAR). pt A/O, VSS. DENIES PAIN AND NAUSEA. I&O'S ALSO COLLECTED. pt COMPLIANT WITH CARE, +1 EDEMA NOTED TO BLE, ELEVATED WITH PILLOWS. pt DENIES SOB, LUNG SOUNDS DIMINISHED. 2LNC IN PLACE, NO FURTHER NEEDS. CALL LIGHT IN REACH. pt VERBALIZED READINESS TO USE BIPAP MACHINE FOR BED, RT ELAINE AWARE.
--- NOTE | 2021-02-19 22:57 | NUR ---
ROUNDED ON pt, pt AWAKE AND FIDGETING WITH TRILOGY MASK, RT ELAINE MADE AWARE AND WILL ASSESS FIT OF MASK. NO FURTHER NEEDS, CALL LIGHT IN REACH.
--- NOTE | 2021-02-20 00:10 | NUR ---
pt AWAKE AND RESTING IN BED, 2LNC IN PLACE. pt CALLED EARLIER THIS EVENING AND REPORTED DIFFICULTY WITH TRILOGY MASK, pt ASSESSED BY RT HENRY AND pt WAS SWITCHED TO THE PREVIOUS 2LNC. pt DENIES NEEDS OR CONCERNS, CALL LIGHT IN REACH.
--- NOTE | 2021-02-20 02:15 | NUR ---
pt AWAKE AND VOIDING VIA URINAL, URINAL EMPTIED. QUESTIONS REGARDING CO2 RETENTION AND USE OF TRILOGY MACHINE ANSWERED. pt REASSURED, 2LNC REMAIN IN PLACE. ASSESSMENT COMPLETE, NO NEW CHANGES OR CONCERNS. A/OX4, CALL LIGHT IN REACH.
--- NOTE | 2021-02-20 05:50 | NUR ---
IN TO GET VITALS, DAILY WT, FRESH ICE WATER, NO FURTHER NEEDS, PT INTRESTED IN GETTING COFFEE WELL
--- NOTE | 2021-02-20 06:10 | NUR ---
MORNING FREE WATER SPLIT BETWEEN WATER AND AM COFFEE. pt AWAKE AND RESTING IN BED, NO NEEDS VERBALIZED. CALL LIGHT IN REACH.
--- NOTE | 2021-02-20 07:00 | NUR ---
REPORT RECEIVED FROM EAMON DELEON. PT SITTING UP IN CHAIR, NC IN PLACE, EVEN RESPIRATIONS, UNLABORED. PT STATES NO NEEDS, UPDATES RN ON HIS MORNING FLUID INTAKE. WILL CONTINUE PLAN OF CARE.
--- NOTE | 2021-02-20 08:10 | NUR ---
Vitals taken, scheduled medications administered. Pt sitting up in chair eating breakfast, 2L NC in place. Pt's son in room, all questions answered. Call light in reach, no needs at this time.
--- NOTE | 2021-02-20 10:36 | NUR ---
Rounded on patient, resting in chair with eyes closed. Even and unlabored breathing, 2L NC in place. Call light within reach.
--- NOTE | 2021-02-20 11:41 | NUR ---
CHANGES MADE TO TRILOGY Tv 385 RR 18 It 0.9 , CHANGES MADE PER CONSULTING WITH DR ROSS
[2021-02-20] MEDS ORDERED: DILTIAZEM 24HR240 M1 PO (11:43)
[2021-02-20] MEDS ORDERED: METOPROLOL SUC100 MG PO (11:43)
[2021-02-20] MEDS ORDERED: TORSEMIDE20 MG PO (11:44)
--- NOTE | 2021-02-20 13:20 | NUR ---
PT DISCHARGED TO HOME VIA WHEELCHAIR WITH BELONGINGS IN HAND. DISCHARGE INFORMATION PROVIDED VERBALLY AND WRITTEN, ALL QUESTIONS ANSWERED AND PT'S CONCERNS ADDRESSED. PT SENT HOME WITH O2 QUALIFIER AND EQUIPMENT. PT IN STABLE CONDITION, TO DRIVE HOME.
--- NOTE | 2021-02-22 07:12 | NUR ---
Received Rx for Trilogy settings for pt which was discharged over the weekend. Rx faxed to [facility].
--- NOTE | 2021-02-22 16:08 | NUR ---
Heart Failure follow up call completed. Mr Tran has no concerns, has all of the prescribed medications. Weight is down 1/10 pound this AM. Follow up visit is this with PCP.
== END 2021-02-20 13:12 | disposition home or self-care (01) | DRG 291 ==
LOC: ED 14:10 → CCU 14:11 → ED 17:47 → CCU 17:48 → MS 02-15 16:25
PROVIDERS: ADMIT Internal Medicine; ATTEND Internal Medicine
PROC: 5A09357 Assistance with Respiratory Ventilation, Less than 24 Consecutive Hours, Continuous Positive Airway Pressure (ICD-10-PCS; principal; 2021-02-13)
DX: I11.0 Hypertensive heart disease with heart failure (principal); J96.21 Acute and chronic respiratory failure with hypoxia; J96.22 Acute and chronic respiratory failure with hypercapnia; Z20.822 Contact with and (suspected) exposure to COVID-19; I50.33 Acute on chronic diastolic (congestive) heart failure; R91.1 Solitary pulmonary nodule; J44.9 Chronic obstructive pulmonary disease, unspecified; I50.813 Acute on chronic right heart failure; E87.5 Hyperkalemia; T46.4X5A Adverse effect of angiotensin-converting-enzyme inhibitors, initial encounter; Z79.899 Other long term (current) drug therapy; Z87.891 Personal history of nicotine dependence
CPT/HCPCS: 36415; 36600; 71045; 71046; 71260; 80048; 80053; 80069; 82803; 83735; 83880; 84439; 84443; 84484; 85025; 85651; 93005; 93010; 93306; 94640; 94660; 94760; 94761; 96372; 96375; 96376; 99285-25; C9803; G0378; J0610; J0696; J1100; J1120; J1650; J1940; J3475; J3490; Q9967; U0003

== ENCOUNTER 2021-12-28 11:11 | Emergency (ER) | payer OTHER ==
[~2021-12-28] VITALS: Ht 180.3 cm; Wt 87.5 kg
[~2021-12-28 11:11] MED LIST changes: +ASPIRIN EC325 MG PO; +DILTIAZEM 24HR120 MG PO; +DILTIAZEM 24HR240 M1 PO; +METOPROLOL SUC100 MG PO; +TORSEMIDE20 MG PO; +TRIAMCINOLONE A15 G1 TOP
[2021-12-28] MEDS ORDERED: LIDODERM1 EACH TD (12:45)
[2021-12-28] MEDS ORDERED: NAPROSYN500 MG PO (12:45)
[2021-12-28] MEDS ORDERED: ATIVAN1 MG PO (12:45)
== END 2021-12-28 13:34 | disposition home or self-care (01) ==
LOC: ED 11:11
DX: S39.012A Strain of muscle, fascia and tendon of lower back, initial encounter (principal); J44.9 Chronic obstructive pulmonary disease, unspecified; Z79.899 Other long term (current) drug therapy; Z79.82 Long term (current) use of aspirin; X50.9XXA Other and unspecified overexertion or strenuous movements or postures, initial encounter
CPT/HCPCS: 72100; 99283-25

== ENCOUNTER 2023-09-15 07:24 | Inpatient (IN) | payer MEDICARE, OTHER ==
[~2023-09-15] VITALS: Ht 180.3 cm; Wt 82.8 kg
[~2023-09-15 07:24] MED LIST changes: +ATIVAN1 MG PO; +LIDODERM1 EACH TD; +NAPROSYN500 MG PO
[2023-09-15] MEDS ORDERED: SPIRIVA RESPIMAT4 GM INH (07:36)
[2023-09-15] MEDS ORDERED: ADVAIR 250-501 EACH INH (07:36)
[2023-09-15 08:23] LABS: BILIRUBIN, URINE POSITIVE (negative); BLOOD/HGB, URINE NEGATIVE (Negative); KETONE, URINE TRACE (Negative); LEUK ESTERASE, URINE NEGATIVE (negative); NITRITE, URINE NEGATIVE (negative); PH, URINE 6.5 (5-7)
[2023-09-15 08:26] LABS: BASOPHILS 0.9 % (0-2); EOSINOPHILS 1.1 % (0-6); HEMATOCRIT 30.6 % (35.0-50.0); HEMOGLOBIN 9.8 g/dL (12.0-18.0); LYMPHOCYTES 6.7 % (24-44); MCH 24.7 (27-36); MCHC 31.9 g/dl (30-36); MCV 77.3 fl (81-99); MONOCYTES 10.8 % (0-12); NEUTROPHILS 80.5 % (39-80); PLATELET COUNT 627 K/uL (140-440); RBC 3.96 M/ul (4.3-5.7); RDW 16.4 (10.5-15.0)
[2023-09-15 08:32] LABS: EPITHELIAL CELLS, URINE SQUAMOUS 2+ /lpf (0-1+); RED BLOOD CELLS, URINE 0-1 /hpf (0-5); REFLEX CULTURE, URINE No (No); WHITE BLOOD CELLS, URINE 0-1 /HPF (0-5)
[2023-09-15 08:39] LABS: ALBUMIN 2.1 g/dL (3.4-5.0); ALBUMIN/GLOBULIN RATIO 0.48 (1.1-2.4); ANION GAP 10.6 (7-21); BILIRUBIN, TOTAL 0.6 ng/dL (0.2-1.0); BUN/CREATININE RATIO 12.9 (6.0-28.6); CALCIUM 8.4 mg/dL (8.5-10.1); CREATININE, SERUM 1.24 mg/dL (0.70-1.30); POTASSIUM 3.6 mmol/L (3.5-5.1); PROTEIN, TOTAL 6.5 g/dL (6.4-8.2)
--- NOTE | 2023-09-15 10:45 | NUR ---
Patient arrives to [facility] via stretcher. Able to transfer self to hospital bed independently. Patient A+O, reports no pain or nausea at this time. History and assessment complete. Personal belongings inventoried. IV to L AC flushes well, IVF and IV ABX initiated. HRR, heart sounds distant, lung sounds clear. Bowel tones active. ABD nontender to palpate. Urine dark, concentrated. Patient has loose bowel movement, brown, no blood noted. Skin intact, CMS intact. Awaiting doctor orders at this time. Patient and his Marcia report no needs and are agreeable to POC. Call light in reach.
[2023-09-15 10:51] VITALS: BP 128/61
--- NOTE | 2023-09-15 12:30 | NUR ---
THIS RN TO ROOM TO CHECK ON PT. PT RESTING IN BED, DENIES PAIN AND NAUSEA. PT DENIES ANY ADDITIONAL BOWEL MOVEMENTS AT THIS TIME. PT WAS ABLE TO EAT 100% OF CLEAR LIQUID LUNCH STATING "THAT HIT THE SPOT." PT DENIES ADDITIONAL REQUESTS OR COMPLAINTS AT THIS TIME. CALL LIGHT WITHIN REACH. BED RAILS UP. PT ENCORUAGED TO CALL WITH ANY NEEDS. PTS PRIMARY RN UPDATED.
--- NOTE | 2023-09-15 12:44 | NUR ---
PICC LINE PLACEMENT COMPLETE AND VARIFIED FOR USE BY SALUD PICC LINE RN. PT TOELRATED PROCEEDURE WELL. PT DENIES PAIN OR NAUSEA AT THIS TIME. TEMPERATURE NOTED TO BE TRENDING DOWN. DIFFICULTY MEASUREING TEMPERATURE ALTHOUGH EVENTUALLY FOUND TO BE 97.1 ORALLY. BEAR HUGGER WARMTH AND WARM BLANKET PROVIDED. K PAD PLACED. PT DENIES FEELINGS OF COLD. ARMS, TORSO, HANDS AND FEET NOTED TO BE COOL TO THE TOUCH. IV FLUIDS RESUMED. NO ADDITIONAL REQUESTS OR COMPLAINTS. CALL LIGHT WITHIN REACH. PTS PRIMARY RN UPDATED.
[2023-09-15] MEDS ORDERED: DILTIAZEM 24HR120 MG PO (12:55)
[2023-09-15] MEDS ORDERED: ROSUVASTATIN CA20 MG PO (12:56)
[2023-09-15] MEDS ORDERED: TORSEMIDE20 MG PO (13:44)
--- NOTE | 2023-09-15 13:44 | NUR ---
Dr Rosado in room to see patient. POC reviewed, patient and provided with extensive education by this RN. IVF infusing. Patient SBA to BR for another loose brown stool. 100ml dark urine noted. Patient reports no pain or nausea at this time. Call light in reach.
--- NOTE | 2023-09-15 13:44 | NUR ---
MED REC COMPLETE
--- NOTE | 2023-09-15 15:00 | NUR ---
Scheduled IV ABX and lovenox administered per order. Discussed patient's home medications and use of personal inhalers, pt would prefer to bring in own inhalers from home and have them verified by pharmacy rather than use hospital formulary. James RT in room for EKG order. Patient denies pain, needs. Call light in reach.
[2023-09-15 17:30] VITALS: BP 109/53
--- NOTE | 2023-09-15 19:31 | NUR ---
REPORT RECIEVED FROM SAIRA DELEON. PATIENT RESTING IN BED. IVF INFUSING PER ORDER. BOARD UPDATED. CALL LIGHT WITHIN REACH. NO FURTHER NEEDS AT THIS TIME.
--- NOTE | 2023-09-15 19:45 | EKG ---
[facility] [address] [facility] [place], [place] [address] Signed Normal sinus rhythm Normal ECG When compared with ECG of 10-FEB-2021 14:29, Questionable change in QRS axis Confirmed by DELMI MALONE MD ([id number]) on 09/15/2023 7:45:25 PM Electronically Signed By: DELMI MALONE 09/15/231944 PATIENT NAME: LOREN RAMOS Electrocardiogram DATE OF : 50 PHYSICIAN: DELMI MALONE REPORT #: [id number] REPORT IS CONFIDENTIAL AND NOT TO BE RELEASED WITHOUT AUTHORIZATION
[2023-09-15 21:33] VITALS: BP 110/55
--- NOTE | 2023-09-15 21:40 | NUR ---
ASSESSMENT AND VITAL SIGNS DONE. IV ABX INFUSING PER ORDER, SEE MAR. IV ASSESSED, WNL. IVF INFUSING PER ORDER SEE MAR. WATER REFRESHED. SCHEDULED MEDICATIONS ADMINISTERED PER ORDER, SEE MAR. CALL LIGHT WITHIN REACH. NO OTHER NEEDS AT THIS TIME.
--- NOTE | 2023-09-15 23:00 | NUR ---
pt CALLED BECAUSE HE USED THE BR. pt HAD A SM BM AND DARK COLORED URINE. pt INDEPENDENT IN RM. CALL LIGHT WITHIN REACH. NO OTHER NEEDS AT THIS TIME.
[2023-09-16 01:07] VITALS: BP 107/57
--- NOTE | 2023-09-16 01:30 | NUR ---
BLADDER SCANNED pt DUE TO LOW URINE OUTPUT AND CONCERN FOR RETENTION. 180 MLS IN BLADDER. SCDS IN PLACE. ASSESSMENT AND VITAL SIGNS DONE. IV ASSESSED, WNL. pt DENIES ANY PAIN AT THIS TIME. CALL LIGHT WITHIN REACH. NO OTHER NEEDS AT THIS TIME.
--- NOTE | 2023-09-16 03:14 | NUR ---
IV ABX INFUSING PER ORDER, SEE MAR. IVF RUNNING CONCURRENTLY. IV ASSESSED, WNL. pt RESTING IN THE BED WITH EYES CLOSED. CALL LIGHT WITHIN REACH. NO OTHER NEEDS AT THIS TIME.
[2023-09-16 04:59] VITALS: BP 124/66
--- NOTE | 2023-09-16 05:08 | NUR ---
VITAL SIGNS DONE. pt UP TO BR. INDEPENDENT/SBA IN RM. NEW BAG OF IVF INFUSING PER ORDER SEE MAR. CALL LIGHT WITHIN REACH. NO OTHER NEEDS AT THIS TIME.
[2023-09-16 05:30] LABS: BASOPHILS 0.6 % (0-2); EOSINOPHILS 4.2 % (0-6); HEMATOCRIT 24.8 % (35.0-50.0); HEMOGLOBIN 8.3 g/dL (12.0-18.0); MCH 25.3 (27-36); MCHC 33.3 g/dl (30-36); MCV 76.1 fl (81-99); MONOCYTES 15.4 % (0-12); NEUTROPHILS 68.8 % (39-80); PLATELET COUNT 545 K/uL (140-440); RBC 3.26 M/ul (4.3-5.7); RDW 16.1 (10.5-15.0)
[2023-09-16 06:00] LABS: ANION GAP 13.3 (7-21); BUN/CREATININE RATIO 9.09 (6.0-28.6); CALCIUM 7.9 mg/dL (8.5-10.1); CREATININE, SERUM 1.1 mg/dL (0.70-1.30); MAGNESIUM 1.8 mg/dL (1.8-2.4); PHOSPHORUS, INORGANIC 3.1 mg/dL (2.5-4.9); POTASSIUM 3.3 mmol/L (3.5-5.1)
--- NOTE | 2023-09-16 06:30 | NUR ---
PATIENT IN BED RESTING. pt DENIES ANY PAIN AT THIS TIME. RR EVEN AND UNLABORED. CALL LIGHT WITHIN REACH NO OTHER NEEDS AT THIS TIME.
[2023-09-16 09:00] VITALS: BP 121/54
--- NOTE | 2023-09-16 09:09 | NUR ---
PT STATES HE TAKES 120MG DILTIAZEM NOT 240MG. DR. ZUNIGA CALLED AND ORDERS GIVEN TO ADJUST DOSE. ORDERS ENTERED, REPEAT BACK PERFORMED. DR. ZUNIGA ALSO UPDATED ON PTS VOIDING STATUS, NO NEW ORDERS AT THIS TIME. PTS PRIMARY RN UPDATED.
--- NOTE | 2023-09-16 09:33 | CONS ---
[facility] [address] [place], [place] [address] Signed DATE OF CONSULTATION: 09/15/2023 CHIEF COMPLAINT: Lower abdominal pain, diarrhea and malaise. HISTORY OF PRESENT ILLNESS: Miguel is a 72-year-old gentleman who about two months ago, maybe a little longer was having lower abdominal pain mostly with diarrhea and weight loss. He has been feeling malaise and kind of weak, too much pain. He finally came to emergency room for evaluation. His vital signs were fine. He amazingly does not seem to have much in the way of abdominal complaints. White count was borderline at 11.7. He is a little anemic. His albumin is on the lower side at 2.1. CT scan of the abdomen and pelvis showed his thickened inflamed sigmoid colon consistent with his diverticulitis area of subserosal abscess probably 2.3 x 2.5 cm. He has a very small prostate from his radiation therapy. I have been asked to admit him as a general surgeon on-call. In the meantime, he has received cefepime and Flagyl. His significant other of many years is at the bedside. PAST MEDICAL HISTORY: 1. Moderate COPD. 2. Prostate cancer. 3. Hypertension. 4. Right orbital fracture requiring surgery. PAST SURGICAL HISTORY: Includes bilateral vasectomy, his cataracts and the epigastric hernia repair. SOCIAL HISTORY: He quit smoking 1-1/2 packs of cigarettes a day. He does not drink. He quit smoking marijuana. Dr. Dee June is his primary care provider. He prefers the [facility]. Shauna Maradiaga is his daughter at [phone], Melonie Trent is his significant other of many years at [phone]. He has four children and 2 step children. 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 FAMILY HISTORY: Mom is a smoker. Dad had unknown type pf cancer. REVIEW OF SYSTEMS: He had 10 systems reviewed and helped fill in some of the detail on his past medical history. ALLERGIES: None. Electronically Signed By: DERIK ZUNIGA MD 09/16/23 0933 PATIENT NAME: MIGUEL RAMOS CONSULTATION DATE OF : 50 REPORT #: [id number] PHYSICIAN: DERIK ZUNIGA MD PCP: DEE JUNE MD REPORT IS CONFIDENTIAL AND NOT TO BE RELEASED WITHOUT AUTHORIZATION [facility] [address] [place], [place] [address] Signed MEDICATIONS: 1. Metoprolol 100 mg p.o. at bedtime. 2. Diltiazem extended release 240 mg p.o. daily. 3. Torsemide 40 mg p.o. b.i.d. 4. Aspirin 325 mg p.o. daily. 5. Advair 1 puff daily and Spiriva 2 puffs daily. PHYSICAL EXAMINATION: VITAL SIGNS: His blood pressure is 130/66, heart rate 69, respiratory rate 16, temperature is 98.0. He is 99% on room air. He is 5 feet 11 inches, 81 kg with a body mass index of 25. GENERAL: Miguel is a 72-year-old gentleman lying supine in his hospital bed. His significant other is in the room. Our nurse came in as well. He does not appear systemically ill or toxic. LUNGS: Clear to auscultation bilaterally. HEART: Regular rate and rhythm without murmurs. ABDOMEN: Soft, flat and nontender and no masses. However, he points across his lower abdomen is the area that bothers him the most. LABORATORY DATA: His white blood count 11.7, hemoglobin 9.8, mean cell volume 77, neutrophils 80. Electrolytes unremarkable. UA negative. Liver function tests negative. Albumin is 2.1. RADIOGRAPHIC STUDIES: CT scan of abdomen and pelvis is reviewed, both images and the report. He clearly has a very thickened inflamed sigmoid colon consistent with some diverticulitis behind his urinary bladder. There is a subserosal abscess about 2.3 x 2.5 cm. His prostate gland is quite small. ASSESSMENT AND PLAN: Miguel is a 72-year-old gentleman, who appears to have probably some level of acute on chronic diverticulitis. He has been admitted and we are going to leave him on clear liquids for now with some IV fluids. We will continue the cefepime and Flagyl. Hopefully, we can get this to settle down. He knows that if it continues to give him trouble, he is going to need that part of his colon removed. Miguel and his significant other Melonie have expressed understanding and agreed with the above plan. Derik Zuniga MD Electronically Signed By: DERIK ZUNIGA MD 09/16/23 0933 PATIENT NAME: MIGUEL RAMOS CONSULTATION DATE OF : 50 REPORT #: [id number] PHYSICIAN: DERIK ZUNIGA MD PCP: DEE JUNE MD REPORT IS CONFIDENTIAL AND NOT TO BE RELEASED WITHOUT AUTHORIZATION [facility] [address] [address] Signed ALB/MODL /[id number] cc: Dr. Dee Zuniga MD Copies: DERIK ZUNIGA MD ~ Electronically Signed By: DERIK ZUNIGA MD 09/16/23 0933 PATIENT NAME: MIGUEL RAMOS CONSULTATION DATE OF : 50 REPORT #: [id number] PHYSICIAN: DERIK ZUNIGA MD PCP: DEE JUNE MD REPORT IS CONFIDENTIAL AND NOT TO BE RELEASED WITHOUT AUTHORIZATION
--- NOTE | 2023-09-16 11:30 | NUR ---
Patient in bed resting, eyes closed, respirations even and non labored. Patient has no notable distress. IV fluids infusing per provider order. Call light within reach.
[2023-09-16 13:13] VITALS: BP 119/65
--- NOTE | 2023-09-16 14:16 | NUR ---
Patient awake in bed, no acute distress. Patient reports tolerable abdominal pain, no nausea. Patient reports he is going to take a nap. Iv abx started per schedule-Iv remains patent. No current needs, personal supplies and call light within reach.
--- NOTE | 2023-09-16 16:22 | NUR ---
PUMP ALARMING, IV FLUIDS COMPLETE. NEW BAG HUNG. IV ASSESSED, WNL. NO S/S OF PHLEBITIS PRESENT. PT RESTING IN BED, VISITING WITH HIS . MEDICATION GIVEN. PT DENIES PAIN AND NAUSEA. PT VERBALIZES UNDERSTANDING OF PLAN OF CARE AND STATES HIS QUESTIONS HAVE BEEN ANSWERED. NO ADDITIONAL REQUESTS OR COMPLAINTS. ICE WATER REFILLED. CALL LIGHT WITHIN REACH. BED RAILS UP..
[2023-09-16 18:00] VITALS: BP 107/52
--- NOTE | 2023-09-16 19:10 | NUR ---
REPORT RECIEVED FROM IVAN DELEON. PATIENT RESTING IN BED. IVF INFUSING PER ORDER, SEE MAR. CALL LIGHT WITHIN REACH. NO OTHER NEEDS AT THIS TIME.
[2023-09-16 20:55] VITALS: BP 108/59
--- NOTE | 2023-09-16 21:24 | NUR ---
Pt in bed resting, VS done to assit nurse and cefepime hung. Pt denies pain. PT HAS METOPROLOL DUE BUT BP IS LOW AND HAS BEEN LOW SINCE 1800 VS. ADVISED PRIMARY NURSE AND SUGGESTED CALLING MD. HR SR 70 BP 108/59. MAGNESIUM SUPP GIVEN PER DEC. CLEANED PT BATHROOM, SMALL STOOL MESS,NO BLOOD NOTED. PRIMARY NURSE NOTIFIED.
--- NOTE | 2023-09-16 21:45 | NUR ---
ASSESSMENT AND VITAL SIGNS DONE. BP 108/54, DR. ZUNIGA CALLED TO VERIFY HOLDING METOPROLOL. DR. ZUNIGA OK'D HOLDING SCHEDULED BP MEDICATION. WATER REFRESHED. IV ASSESSED, WNL. IV ABX INFUSING PER RDER, SEE MAR. CALL LIGHT WITHIN REACH. NO OTHER NEEDS AT THIS TIME.
--- NOTE | 2023-09-17 00:09 | NUR ---
assisted Pt to the bathroom. Denies pain or other needs. IV fluids infusing
--- NOTE | 2023-09-17 02:28 | NUR ---
Assisted Pt to the BR, denies other needs
--- NOTE | 2023-09-17 04:00 | NUR ---
PATIENT RESTING IN BED WITH EYES CLOSED. RESP OBSERVED. RR EVEN AND UNLABORED. CALL LIGHT WITHIN REACH.
[2023-09-17 05:35] VITALS: BP 112/58
--- NOTE | 2023-09-17 06:07 | NUR ---
PATIENT RESTING IN BED. RR EVEN AND UNLABORED. pt DENIES PAIN. CALL LIGHT WITHIN REACH. NO OTHER NEEDS AT THIS TIME.
--- NOTE | 2023-09-17 07:07 | NUR ---
In to meet pt. Pt is resting supine in bed, awake, A&O x4. Denies needs at this time. Side rails up, personal belongings, call light, and bedside table in reach. Pt report received from RNs Hyun.
--- NOTE | 2023-09-17 08:59 | NUR ---
In with pt for medication administration and assessments. Pt is finishing up his breakfast, in bed. Denies any pain or needs at this time, seems to be in a pleasant mood, and is A&O x4. Pt declined the enoxaparin stating that he gets out of bed often and while in bed, he does leg movements for exercise. Call light in reach. Refreshed pt's ice water. Flagyl running, iv patent, flushes well, no return, no pain, tenderness, no swelling, no redness, no leaking.
[2023-09-17 09:37] VITALS: BP 125/56
--- NOTE | 2023-09-17 10:10 | NUR ---
In pt room for med administration (late) per emar. Connected IV cefipime, then s/l pt so he can shower with help from his . Covered IV site and provided pt with towels and a clean gown and instructed them to use the call light if they need assistance. Pt was provided with a green [employer] personal belongings bag to put his dirty clothes in at his request.
--- NOTE | 2023-09-17 10:42 | NUR ---
PC TO CHRISTOPHER IN PHARMACY TO ASK ABOUT THE RATE OF ADMINISTRATION FOR CURRENT CEFIPIME (4HR EXTENDED INFUSION) DOSE. PER CHRISTOPHER, IT IS OKAY TO RUN IT IN OVER 30 MINUTES.
--- NOTE | 2023-09-17 10:46 | NUR ---
DR. ZUNIGA IN WITH PT. HE ADVISED TO GO AHEAD AND ADMINISTER THE CEFIPIME OVER 30 MINUTES PER PHARMACY. IV SITE IS INTACT, NO REDNESS, NOTED SOME SLIGHT SWELLING OFF TO THE RIGHT OF THE INSERTION SITE AROUND THE AREA WHERE THE BAG WAS TAPED TO HIS ARM AND HE THINKS MAYBE THE BAG WAS TAPED TOO TIGHT. CALL LIGHT IN REACH.
--- NOTE | 2023-09-17 11:17 | NUR ---
In with pt for IV assessment, no leaking noted. Kerlex wet, likely from showering. IV site is patent, slight swelling still noted to the lateral AC, no redness, no pain unless palpated, then he states it is tender. IV abx approx 2-5 minutes from completion. advised pt to call if worsening in the next 2 to 5 minutes. Pt and verbalized understanding.
--- NOTE | 2023-09-17 11:22 | NUR ---
PT CALL LIGHT ON. STATING HIS ABX IS COMPLETE AND HE WOULD LIKE IS IV DC'D. PTS PRIMARY RN STATES OK TO DC IV IFABX IS COMPLETE. LINE FLUSHED AND SALINE LOCKED. DC'D PER PROTOCOL. GAUZE AND COBAN APPLIED. PT ENCOURAGED TO GET DRESSED, PTS IN ROOM TO ASSIST PT IF NEEDED. NO ADDITIONAL REQUESTS OR COMPLAINTS. CALL LIGHT WITHIN REACH. PTS PRIMARY RN UPDATED.
[2023-09-17] MEDS ORDERED: AUGMENTIN 500-1 EACH PO (12:09)
[2023-09-17] MEDS ORDERED: METRONIDAZOLE500 MG PO (12:10)
--- NOTE | 2023-09-17 12:28 | NUR ---
PT LEAVES UNIT VIA WHEEL CHAIR ESCORTED BY THIS RN TO PRIVATE CARE DRIVEN BY SPOUSE.
--- NOTE | 2023-09-18 07:30 | DS ---
[facility] [address] [place], [place] [address] Signed ADMISSION DATE: 09/15/2023 DISCHARGE DATE: 09/17/2023 FINAL DIAGNOSES: 1. Acute on chronic sigmoid diverticulitis with small 2.5 cm subserosal abscess. 2. Microcytic anemia. PROCEDURE: CT scan of abdomen and pelvis. HISTORY OF PRESENT ILLNESS: Miguel is a 72-year-old gentleman, who for at least two months has had abdominal pain in the lower portion with diarrhea and weight loss. He finally came to the emergency room for evaluation. He tends to avoid doctors at his baseline. His vital signs were unremarkable. He really did not complain of any direct pain to palpation or any obvious palpable mass. White count was borderline at 11.7. However, his hemoglobin was actually low at 9.8 with a mean cell volume of 77. Albumin is low at 2.1. He had a CT scan of the abdomen and pelvis performed and sure enough he has a thickened inflamed sigmoid colon consistent with his diverticulitis. Also, he has a 2.3 x 2.5 cm subserosal abscess in the sigmoid colon. Also, his prostate is quite small after being treated for the prostate cancer. I had been asked to admit him as a general surgeon on-call. HOSPITAL COURSE: Miguel was admitted as above and we put him on IV fluids along with IV cefepime and Flagyl. He was with clear liquid diet. Each day he improved. He was clearly dehydrated when he got here. He looks and feels much better. He is on full liquid diet at this time. His stool went from liquid, now it is more semi solid/fluid. He said it has actually improved. He does not seem to be having the crampy pain and explosive diarrhea. I also mentioned to Miguel that he has microcytic anemia. He said that is new for him. At this point, his abdomen is completely benign and there is no palpable mass, no pain whatsoever. He said he would like to go home on p.o. antibiotics. His significant other, Melonie, has been with him each day. DISCHARGE PLANS AND MEDICATIONS: We are going to send Miguel home with 12 days of Augmentin 500 mg one p.o. b.i.d. We will send Flagyl 500 mg one p.o. t.i.d. He can use Tylenol, ibuprofen or Aleve p.r.n. for [id number] pain. He can continue all his chronic medications at home as he has here in the hospital. We have asked him to follow more of a soft diet with low fiber content for the next 6 to 8 weeks. He is welcome to perform his activities of daily living including walking up and down stairs and showering and bathing as usual. Electronically Signed By: DERIK ZUNIGA MD 09/18/23 0730 PATIENT NAME: MIGUEL RAMOS DISCHARGE SUMMARY DATE OF : 50 REPORT #: [id number] PHYSICIAN: DERIK ZUNIGA MD PCP: DEE JUNE MD REPORT IS CONFIDENTIAL AND NOT TO BE RELEASED WITHOUT AUTHORIZATION [address] [address] Signed We are going to have him back in the office in about a week for followup. Because of the diverticulitis along with the microcytic anemia, he is going to need both upper and lower endoscopy here in the weeks ahead. If his sigmoid colon does not settle down, he is aware that he will need surgery. I did bring him a brochure from the office on diverticulitis. We had looked at it page by page including the surgical therapy. In addition, he needs to see his primary care provider, Dr. Dee June in the next 1 to 4 weeks because of the new onset microcytic anemia. He and his have expressed understanding and agreed with the above plan. Derik Zuniga MD ALB/MODL /[id number] cc: Dr. Dee Zuniga MD Copies: DERIK ZUNIGA MD ~ Electronically Signed By: DERIK ZUNIGA MD 09/18/23 0730 PATIENT NAME: MIGUEL RAMOS DISCHARGE SUMMARY DATE OF : 50 REPORT #: [id number] PHYSICIAN: DERIK ZUNIGA MD PCP: DEE JUNE MD REPORT IS CONFIDENTIAL AND NOT TO BE RELEASED WITHOUT AUTHORIZATION
== END 2023-09-17 12:28 | disposition home or self-care (01) | DRG 392 ==
LOC: ED 07:24 → MS 07:27
PROVIDERS: Emergency Medicine; ADMIT Colon & Rectal Surgery; ATTEND Colon & Rectal Surgery
DX: K57.20 Diverticulitis of large intestine with perforation and abscess without bleeding (principal); D50.9 Iron deficiency anemia, unspecified; J44.9 Chronic obstructive pulmonary disease, unspecified; I10 Essential (primary) hypertension; E86.0 Dehydration; Z85.46 Personal history of malignant neoplasm of prostate; Z92.3 Personal history of irradiation; Z98.52 Vasectomy status; Z87.891 Personal history of nicotine dependence
CPT/HCPCS: 36415; 74177; 80048; 80053; 81001; 82378; 83690; 83735; 84100; 85025; 93005; 93010; 94760; 96365; 99285-25; A9270; G0378; J0692; J1650; J7030; J7121; Q9967

== ENCOUNTER 2023-11-06 14:18 | Inpatient (IN) | payer OTHER, MEDICARE ==
[~2023-11-06] VITALS: Ht 180.3 cm; Wt 78.2 kg
[~2023-11-06 14:18] MED LIST changes: +ADVAIR 250-501 EACH INH; +AUGMENTIN 500-1 EACH PO; +METRONIDAZOLE500 MG PO; +ROSUVASTATIN CA20 MG PO; +SPIRIVA RESPIMAT4 GM INH
[2023-11-06 14:48] LABS: BASOPHILS 0.2 % (0-2); EOSINOPHILS 0.2 % (0-6); HEMOGLOBIN 7.8 g/dL (12.0-18.0); LYMPHOCYTES 0.9 % (24-44); MCH 21.8 (27-36); MCHC 30.2 g/dl (30-36); MCV 72.3 fl (81-99); MONOCYTES 1.3 % (0-12); NEUTROPHILS 97.4 % (39-80); PLATELET COUNT 671 K/uL (140-440); RDW 18.4 (10.5-15.0)
[2023-11-06 15:09] LABS: ALBUMIN 1.5 g/dL (3.4-5.0); ALBUMIN/GLOBULIN RATIO 0.38 (1.1-2.4); ANION GAP 13.7 (7-21); BILIRUBIN, TOTAL 0.4 ng/dL (0.2-1.0); BUN/CREATININE RATIO 14.28 (6.0-28.6); CREATININE, SERUM 1.19 mg/dL (0.70-1.30); MAGNESIUM 1.7 mg/dL (1.8-2.4); POTASSIUM 3.7 mmol/L (3.5-5.1); PROTEIN, TOTAL 5.4 g/dL (6.4-8.2)
[2023-11-06 17:39] LABS: BILIRUBIN, URINE POSITIVE (negative); BLOOD/HGB, URINE NEGATIVE (Negative); KETONE, URINE TRACE (Negative); LEUK ESTERASE, URINE NEGATIVE (negative); NITRITE, URINE NEGATIVE (negative)
[2023-11-06 17:47] LABS: EPITHELIAL CELLS, URINE SQUAMOUS 1+ /lpf (0-1+); RED BLOOD CELLS, URINE 0-1 /hpf (0-5); WHITE BLOOD CELLS, URINE 0-1 /HPF (0-5)
[2023-11-06 17:48] LABS: BACTERIA, URINE RARE /hpf (negative); COLLECTION TYPE, URINE CLEAN CATCH; REFLEX CULTURE, URINE No (No)
[2023-11-06 17:50] LABS: CRYSTALS, URINE CALCIUM OXALATE 4+ (0-1+)
[2023-11-06 21:26] VITALS: BP 122/59
--- NOTE | 2023-11-06 21:31 | NUR ---
1924 - Arrived from ER via stretcher, no c/o pain, alert and oriented
--- NOTE | 2023-11-06 23:15 | NUR ---
CALL LIGHT ANSWERED. SBA. PATIENT GOT UP AND USE THE BEDSIDE COMMODE. THIS [employer] DIPPER OFFERED PULL UPS. PATIENT STATED "NO THANK YOU". PATIENT IS WEARING HIS PERSONAL PAJAMA. PATIENT IS BACK IN BED. PATIENT VOIDED UNMEASURED MIXED WITH SOME CHUNKS BROWN BM. LAB PERSON WAS WITH PATIENT.
--- NOTE | 2023-11-07 00:27 | NUR ---
ESMER ALBERT- DONE, NO QUESTIONS, STATED UNDERSTANDING, SCDS EXPLAINED , ACCEPTED AND PLACED ON.
[2023-11-07 01:52] VITALS: BP 116/66
--- NOTE | 2023-11-07 02:03 | NUR ---
Pt used call light, up to bsc, voided and had small formed brown bm. Does own alex care. no c/o pain, or n/v. Independent from bed to BSC. IVF infusing w/o problems, no c/o adverse reaction to abx. SCD's in place. LE elevated. goes back to bed right away. fluids at bedside
[2023-11-07 05:10] VITALS: BP 115/56
--- NOTE | 2023-11-07 05:29 | NUR ---
PT HAS SLEPT OFF AND ON. UP TO BSC 3x. VOIDS QS AND HAS HAD SMALL SOFT FORMED BM'S. IVF INFUSING W/O PROBLEMS, NO C/O S/SX ADVERSE REACTION TO ABX. PLEASANT AND COOPERATIVE, NO C/O PAIN. TOLERATING SMALL AMOUNT OF CLEARS. AWARE OF CLEAR DIET. SBA WHEN UP TO BSC, INDEPENDENT BACK TO BED
[2023-11-07 05:41] LABS: BASOPHILS 0.1 % (0-2); EOSINOPHILS 0.8 % (0-6); HEMATOCRIT 22.3 % (35.0-50.0); LYMPHOCYTES 6.6 % (24-44); MCH 22.7 (27-36); MCHC 31.5 g/dl (30-36); MONOCYTES 6.8 % (0-12); NEUTROPHILS 85.7 % (39-80); PLATELET COUNT 604 K/uL (140-440); RBC 3.09 M/ul (4.3-5.7); RDW 18.5 (10.5-15.0)
[2023-11-07 06:02] LABS: ALBUMIN 1.4 g/dL (3.4-5.0); ALBUMIN/GLOBULIN RATIO 0.4 (1.1-2.4); ANION GAP 10.6 (7-21); BILIRUBIN, TOTAL 0.4 ng/dL (0.2-1.0); BUN/CREATININE RATIO 14.14 (6.0-28.6); CALCIUM 7.9 mg/dL (8.5-10.1); CREATININE, SERUM 0.99 mg/dL (0.70-1.30); MAGNESIUM 1.8 mg/dL (1.8-2.4); PHOSPHORUS, INORGANIC 3.4 mg/dL (2.5-4.9); POTASSIUM 3.6 mmol/L (3.5-5.1); PROTEIN, TOTAL 4.9 g/dL (6.4-8.2)
--- NOTE | 2023-11-07 07:05 | NUR ---
REPORT FROM Danyell WASHINGTON RN. PATIENT RESTING IN BED. IVF INFUSING. EYES CLOSED. RESPIRATIONS EVEN AND UNLABORED. CALL LIGHT IN REACH. BED RAILS UP X 2. ALLOWED TO REST AT THIS TIME.
--- NOTE | 2023-11-07 07:13 | NUR ---
REPORT FROM Kristy TALBERT RN. PATIENT AMBULATING IN HALLWAY WITH STAFF AT THIS TIME.
--- NOTE | 2023-11-07 08:02 | NUR ---
UR NOTE [facility] DIVERTICULITIS, ACUTE (ISC) 11/06/23 MET CLINICAL INDICATIONS FOR ADMISSION TO INPATIENT CARE GL DAY 1
--- NOTE | 2023-11-07 08:55 | CONS ---
[facility] [address] [place], [place] [address] Signed DATE OF CONSULTATION: 11/07/2023 CHIEF COMPLAINT: Ground level fall. HISTORY OF PRESENT ILLNESS: Miguel is a 72-year-old gentleman, who I met back in September for what looks like sigmoid diverticulitis right at the top of his urinary bladder. He has been telling me that he avoids doctors and he does not want any procedures. He did remind me today that he has had some prostate cancer, not too long ago, treated with external beam radiation with Dr. Robles and Dr. Tay Parra. He has been on various antibiotics and in and out of the hospital and has not been able to completely resolve this area behind the urinary bladder. We offered him colonoscopy, but and he declined. Eventually with the help of his Genevieve, we asked him to go to our [facility] and at least seek out a 2nd opinion consider moving forward. He said he is scheduled some time in the middle of November. In the meantime, he has a very low albumin at 1.5. He was dehydrated and he had a ground level fall at home. They brought him to the emergency room. He has been evaluated, hydrated and still has these inflammatory changes around in the sigmoid colon involving his urinary bladder and a couple loops of small bowel. Of course, he is aware that this could always be cancer and not just diverticular disease. He seemed more minimal to talk about this morning than he has previously. He has been admitted to our medical service and I was asked to see him as a general surgeon on-call. Once again, he is hydrated well and he always denies abdominal pain. PAST MEDICAL HISTORY: 1. Moderate COPD. 2. Prostate cancer treated with external beam radiation with Dr. Robles and Dr. Parra. 3. Hypertension. PAST SURGICAL HISTORY: Includes bilateral vasectomy, tonsillectomy, ventral hernia repair in 1989, orbital repair in 1969 and cataract surgery of his right eye in 2019. FAMILY HISTORY: Father of some type of cancer. Mom was a smoker. He has two sons and two daughters. They apparently are healthy. SOCIAL HISTORY: He likes to smoke marijuana. He is a , but he has significant other, Genevieve Trent for many years. Her phone number is [phone]. He likes some coffee in the mornings. 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 Dr. Dee June is his primary care provider. He prefers the [facility] here in [place], [place]. He had smoked a pack of cigarettes a day for years, but quit back in 2009. Electronically Signed By: DERIK ZUNIGA MD 11/07/23 0855 PATIENT NAME: MIGUEL RAMOS CONSULTATION DATE OF : 50 REPORT #: [id number] PHYSICIAN: DERIK ZUNIGA MD PCP: DEE JUNE MD REPORT IS CONFIDENTIAL AND NOT TO BE RELEASED WITHOUT AUTHORIZATION [facility] [address] [place] [id number] Signed ALLERGIES: None. MEDICATIONS: 1. Diltiazem. 2. Metoprolol. 3. Aspirin. 4. Advair Diskus. 5. Spiriva. 6. Torsemide. PHYSICAL EXAMINATION: VITAL SIGNS: His blood pressure 115/56, heart rate 85, respiratory rate 18, temperature 97.5, he is 95% on room air. He is 5 feet 11 inches at 78 kg with a body mass index of 24. GENERAL: Miguel is a 72-year-old gentleman, who looks older than his stated age. He is on the thin side. He is lying supine semi-recumbent in his hospital bed. He always looks a little jaundiced, but his blood work always comes back without an increase in his bilirubin. He still has decent functional status. LUNGS: Have some mildly distant breath sounds. HEART: Difficult to auscultate this morning. ABDOMEN: Always soft and flat. I cannot feel a mass and he never has any pain. He says he just feels a little pressure. LABORATORY DATA: His white blood cell count was 21,000, is down to 14.5. He is anemic, which is not new at 7.0 with a mean cell volume of 72. His neutrophils are 85, platelets are 604, BUN 17, creatinine 1.19. His UA showed some increased urine specific gravity. The albumin is low at 1.5. His alkaline phosphatase is up at 119, but the AST and ALT are normal. He had some blood cultures drawn yesterday and they are pending. He had a chest x-ray done, which is essentially unremarkable. CT scan of abdomen and pelvis again shows this inflamed sigmoid mass involving the bladder and a couple loops of small bowel. ASSESSMENT AND PLAN: Miguel is a 72-year-old gentleman, who may have sigmoid diverticulitis. It could be a colon cancer that is involving part of the bladder and then a couple loops of small bowel. He has also had external beam radiation for prostate cancer. He does not eat well and his protein levels are very low with an albumin of 1.5. He amazingly never complains of pain. He also has COPD. At this point, we are going to try to keep him hydrated, they will put him on clear liquid diet and try to do a bowel prep and see if we can pass the colonoscope at least up to this area in the sigmoid colon to gather some more information. He also has an old POLST form from 2020 when he was quite sick. At that time, he wanted limited treatment. He is now starting to tell me he would accept surgery if necessary. He needs to readdress his POLST form with the hospitalist Electronically Signed By: DERIK ZUNIGA MD 11/07/23 0855 PATIENT NAME: MIGUEL RAMOS CONSULTATION DATE OF : 50 REPORT #: [id number] PHYSICIAN: DERIK ZUNIGA MD PCP: DEE JUNE MD REPORT IS CONFIDENTIAL AND NOT TO BE RELEASED WITHOUT AUTHORIZATION [facility] [address] [place] [id number] Signed service. I have also reviewed colonoscopy with him today. He tells me he has never had a colonoscopy in the past. He understands there is risk including, but not limited to gas bloating, crampy abdominal pain, bleeding, perforation requiring surgery, and missed diagnosis. He has expressed understanding and would like to proceed as above. This was discussed with Miguel and his nurse. MD FREEMAN Jolly/LEANNAL /[id number] cc: MD Dr. Dee Jolly Copies: DERIK ZUNIGA MD ~ Electronically Signed By: DERIK ZUNIGA MD 11/07/23 0855 PATIENT NAME: RACHELMIGUELMARTI TORRES CONSULTATION DATE OF : 50 REPORT #: [id number] PHYSICIAN: DERIK ZUNIGA MD PCP: DEE JUNE MD REPORT IS CONFIDENTIAL AND NOT TO BE RELEASED WITHOUT AUTHORIZATION
--- NOTE | 2023-11-07 09:17 | NUR ---
AM MEDICATIONS ADMINISTERED. ASSESSMENT COMPLETED. INSTRUCTED TO DRINK MIRALAX AND CALL FOR ASSISTANCE WHEN NEED ARISES TO USE BSC. VERBALIZES UNDERSTANDING. ASSIST TO BSC AT THIS TIME, RETURNS TO BED. CALL LIGHT IN REACH.
[2023-11-07 09:39] VITALS: BP 108/52
--- NOTE | 2023-11-07 09:51 | NUR ---
ROUNDS. PT AND HUMAN SERVICES SUPERVISOR EXPRESSED STRONG FAMILIAR RESOURCES; CONSENTED TO PRAYER. PROVIDED HOSPITALITY; PROVIDED PRAYER. PT EXPRESSED APPRECIATION.
--- NOTE | 2023-11-07 10:45 | NUR ---
Spoke with Miguel. He lives with his in a 2 story home. Bedroom is on the lower floor so he has 15 steps twice a day. He is legally blind and cannot drive. States he has been having frequent falls and is weak. He is agreeable to use a walker and will get one from [facility]. 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 Pt c/o increased weakness as he has felt ill for the last few months. He plans on dc to home when cleared medically.
[2023-11-07] MEDS ORDERED: BREO ELLIPTA 21 EACH INH (11:07)
[2023-11-07] MEDS ORDERED: ROSUVASTATIN CA20 MG PO (11:09)
--- NOTE | 2023-11-07 11:36 | NUR ---
MED REC COMPLETE
[2023-11-07 11:47] LABS: BASOPHILS 0.3 % (0-2); EOSINOPHILS 0.8 % (0-6); HEMATOCRIT 26.7 % (35.0-50.0); HEMOGLOBIN 8.3 g/dL (12.0-18.0); LYMPHOCYTES 5.1 % (24-44); MCH 22.6 (27-36); MCV 72.9 fl (81-99); NEUTROPHILS 84.8 % (39-80); PLATELET COUNT 683 K/uL (140-440); RBC 3.66 M/ul (4.3-5.7); RDW 18.1 (10.5-15.0)
[2023-11-07 12:23] LABS: ABO O; ANTIBODY SCREEN NEGATIVE; RH NEGATIVE
--- NOTE | 2023-11-07 12:38 | NUR ---
SITTING UP IN BED. DECLINES LUNCH TRAY STATING "I'M TRYING TO CLEAN OUT." ONLY 1 BM NOTED SINCE MIRALAX ADMINISTERED THIS AM. WILL CONTINUE TO MONITOR.
[2023-11-07 13:15] VITALS: BP 116/59
--- NOTE | 2023-11-07 14:44 | NUR ---
MULTIPLE LOOSE, BROWN, LARGE STOOLS. PATIENT PALE AT THIS TIME. NO COMPLAINTS OF DISCOMFORT AT THIS TIME. CALL LIGHT IN REACH.
[2023-11-07 16:51] VITALS: BP 117/61
--- NOTE | 2023-11-07 20:07 | EKG ---
[facility] [address] [facility] [place] [address] Signed Normal sinus rhythm Low voltage QRS Borderline ECG When compared with ECG of 06-NOV-2023 14:29, Sinus rhythm has replaced Junctional rhythm Confirmed by Kg Castaneda MD () on 11/07/2023 8:06:51 PM Electronically Signed By: KG CASTANEDA MD 11/07/232006 PATIENT NAME: LOREN RAMOS MELISSA Electrocardiogram DATE OF : 50 PHYSICIAN: KG CASTANEDA MD REPORT #: [id number] REPORT IS CONFIDENTIAL AND NOT TO BE RELEASED WITHOUT AUTHORIZATION
[2023-11-07 20:19] VITALS: BP 121/62
--- NOTE | 2023-11-07 20:22 | EKG ---
[facility] [address] [facility] [place] [address] Signed Accelerated Junctional rhythm Low voltage QRS Abnormal QRS-T angle, consider primary T wave abnormality Abnormal ECG When compared with ECG of 15-SEP-2023 14:53, Junctional rhythm has replaced Sinus rhythm Nonspecific T wave abnormality now evident in Lateral leads Confirmed by Kg Castaneda MD () on 11/07/2023 8:22:11 PM Electronically Signed By: KG CASTANEDA MD 11/07/232021 PATIENT NAME: LOREN RAMOS Electrocardiogram DATE OF : 50 PHYSICIAN: KG CASTANEDA MD REPORT #: [id number] REPORT IS CONFIDENTIAL AND NOT TO BE RELEASED WITHOUT AUTHORIZATION
--- NOTE | 2023-11-07 20:38 | NUR ---
DR ZUNIGA NOTIFIED OF PTS STOOLS STILL BROWN COLORED AND SOFT. NEW ORDERS FOR ONE MORE BULK MIRALAX BOTTLE TO BE GIVEN. OPTOMETRIC ASSISTANT NOTIFIED.
--- NOTE | 2023-11-07 22:34 | NUR ---
AWAKE, USES BSC, IVF INFUSING, NO C/O PAIN, AWARE OF NPO AFTER MIDNIGHT. CONTIUES TO HAVE FORMED SOFT STOOLS,
[2023-11-08] VITALS (11 sets, daily range): BP systolic 107–133; BP diastolic 43–68
--- NOTE | 2023-11-08 00:17 | NUR ---
THIS RN TO ASSUME CARE OF PATIENT. REPORT RECIEVED. LIQUID STOOL IN BSC, THIS RN EMPTIED. PATIENT NPO AND FLUIDS REMOVED FROM BEDSIDE. PATIENT REPORTS NO FURTHER NEEDS. CALL LIGHT IN REACH.
--- NOTE | 2023-11-08 03:12 | NUR ---
PATIENT USING BSC. PATIENT REPORTS NO CURRENT NEEDS, JUST PRIVACY. CALL LIGHT IN REACH.
--- NOTE | 2023-11-08 04:58 | NUR ---
PATIENT RESTING IN BED ON BACK. RESPIRATIONS EVEN AND UNLABORED. CALL LIGHT IN REACH.
[2023-11-08 05:43] LABS: BASOPHILS 0.5 % (0-2); EOSINOPHILS 1.6 % (0-6); HEMATOCRIT 22.4 % (35.0-50.0); LYMPHOCYTES 10.7 % (24-44); MCH 22.5 (27-36); MCHC 31.3 g/dl (30-36); MONOCYTES 15.2 % (0-12); PLATELET COUNT 545 K/uL (140-440); RBC 3.11 M/ul (4.3-5.7); RDW 18.5 (10.5-15.0)
[2023-11-08 06:01] LABS: ALBUMIN 1.3 g/dL (3.4-5.0); ALBUMIN/GLOBULIN RATIO 0.36 (1.1-2.4); ANION GAP 11.8 (7-21); BILIRUBIN, TOTAL 0.2 ng/dL (0.2-1.0); BUN/CREATININE RATIO 12.64 (6.0-28.6); CALCIUM 7.7 mg/dL (8.5-10.1); CREATININE, SERUM 0.87 mg/dL (0.70-1.30); POTASSIUM 2.8 mmol/L (3.5-5.1); PROTEIN, TOTAL 4.9 g/dL (6.4-8.2)
--- NOTE | 2023-11-08 06:10 | NUR ---
V/S AND I&O'S COMPLETED. EMPTIED BEDSIDE COMMODE BUCKET WITH LARGE AMOUNT OF LIQUID BROWN BM MIXED WITH SMALL AMOUNT OF URINE.
--- NOTE | 2023-11-08 06:20 | NUR ---
PATIENT RESTING IN BED. NEW BAG IV ABX AND IV FLUID INFUSING PER ORDER. PATIENT HAS NO FURTHER NEEDS. CALL LIGHT IN REACH.
--- NOTE | 2023-11-08 07:15 | NUR ---
RECEIVED REPORT FROM ADRIENNE PAREKH. PT RESTING IN BED WITH EYES CLOSED, AWAKENS TO RN IN ROOM. PT STATES NO NEEDS AT THIS TIME, CALL LIGHT WITHIN REACH.
--- NOTE | 2023-11-08 09:58 | NUR ---
ROUNDS. PT NOT IN ROOM. PROVIDED PRAYER.
--- NOTE | 2023-11-08 10:49 | NUR ---
11/08/23 Mar9 Dori Huerta 1029- PT ARRIVES TO PACU, LEFT LATERAL POSITION. LR INFUSING TO RH IV. O2 AT 2L PER NC. ABD SOFT, NON DISTENDED. ALL MONITORS IN PLACE. BREATHING EVEN AND NON LABORED. NON REACTIVE TO STIMULUS AT THIS TIME. 1046- PT AWAKES ON OWN, LOOKING AROUND. REORIENTED TO TIME AND PLACE. PT ENCOURAGED TO PASS GAS, DENIES PAIN AND NAUSEA. LR CONTINUES TO INFUSE. O2 SATS 99-100% ON 2L PER NC, MOVED TO ROOM AIR AT THIS TIME. PT RESTING INTERMITTENTLY.
--- NOTE | 2023-11-08 11:00 | NUR ---
Spoke with Miguel and his . Dr. Diaz in the room explaining blood and I witnessed the consent. Spoke with and discussed pt wanting a walker. He would like one from [facility]. states she will pick one up. They deny further needs.
--- NOTE | 2023-11-08 11:10 | NUR ---
PT ARRIVES TO MEDR UNIT ON BED FROM PACU. PT A+O X3. PT ABLE TO TRANSFER BEDS INDEPENDENTLY. LUNG SOUNDS CLEAR WITH EXPIRATORY WHEEZES IN UPPER LOBED, DIMINISHED IN LOWER LOBED, RT TREATMENT EXPECTED THIS AFTERNOON. PT SWITCHED TO FULL LIQUID DIET AFTER BACK FROM PROCEDURE, DUE TO EAT. PT AND STATE ALL QUESTIONS HAVE BEEN ANSWERED. PT DENIES PAIN/NAUSEA. PT STATES NO FURTHER NEEDS AT THIS TIME, CALL LIGHT WITHIN REACH, BED RAILS UP.
[2023-11-08 11:36] LABS: BASOPHILS 0.5 % (0-2); EOSINOPHILS 1.8 % (0-6); HEMATOCRIT 21.2 % (35.0-50.0); HEMOGLOBIN 6.8 g/dL (12.0-18.0); LYMPHOCYTES 9.8 % (24-44); MCH 22.9 (27-36); MCV 71.7 fl (81-99); MONOCYTES 13.2 % (0-12); NEUTROPHILS 74.7 % (39-80); PLATELET COUNT 534 K/uL (140-440); RBC 2.96 M/ul (4.3-5.7); RDW 18.6 (10.5-15.0)
[2023-11-08 13:01] LABS: IS CROSSMATCH COMPATIBLE
[2023-11-08 13:02] LABS: ABO O; RH NEGATIVE
[2023-11-08 15:42] LABS: CARCINOEMBRYONIC ANTIGEN 2.8 ng/mL (())
--- NOTE | 2023-11-08 16:06 | NUR ---
BLOOD CONTINUES TO INFUSE, PT DENIES ANY S/SX OF TRANSFUSION REACTION. PT STATES NO FURTHER NEEDS AT THIS TIME. CALL LIGHT WITHIN REACH.
--- NOTE | 2023-11-08 17:07 | OR ---
[facility] [address] [place], [place] [address] Signed DATE OF OPERATION: 11/08/2023 SURGEON: Derik Zuniga MD PREOPERATIVE DIAGNOSIS: Sigmoid thickening/mass. POSTOPERATIVE DIAGNOSES: 1. Sigmoid mass/tumor at 22 cm. 2. Minimal to moderate sigmoid diverticulosis. 3. Moderate internal hemorrhoids. 4. Moderate to large external hemorrhoids. 5. Rectal length approximately 18 cm. PROCEDURE: Limited colonoscopy to 22 cm with multiple cold biopsies of tumor/mass. ESTIMATED BLOOD LOSS: None. INDICATIONS: Miguel is a 72-year-old gentleman, who actually came back in September. He told me at that time he avoids doctors and he did want any procedures. He had an inflammatory mass at the dome of his urinary bladder. He also had radiation for prostate cancer I believe last year here in [place], [place]. He also has mild to moderate COPD. We had treated him with antibiotics and his white count went back to normal. He said he never complains of any pain. He never complains of any obstructive-type symptoms. We could not feel a mass. He declined colonoscopy. He finally came back to my office and realized that he was not necessarily getting any better. We put him on another round of antibiotics and again his white count went back to normal, but he never was able to resolve this thickened sigmoid colon at the top of his urinary bladder. Interestingly though he declined colonoscopy once again. He was headed over to our [facility] for a 2nd opinion. That is scheduled for mid November. However, he was dehydrated at home and had a ground level fall. His brought him here in the emergency room. He was admitted to the Internal Medicine Service. I was asked to see him as a general surgeon on-call. He improved much better with his hydration. We can see he is anemic with a hemoglobin of 7.0 and a mean cell volume at 72. His BUN and creatinine are fine at 11 and 0.87. Liver function tests are negative. His albumin is 1.3 and the prealbumin is pending. His CEA level is also pending. The urine specific gravity had been elevated, but there was no red blood cells, white blood cells or Electronically Signed By: DERIK ZUNIGA MD 11/08/23 1707 PATIENT NAME: MIGUEL RAMOS OPERATIVE REPORT DATE OF : 50 REPORT #: [id number] PHYSICIAN: DERIK ZUNIGA MD PCP: DEE JUNE MD REPORT IS CONFIDENTIAL AND NOT TO BE RELEASED WITHOUT AUTHORIZATION [facility] [address] [place], [place] [address] Signed pneumatosis. He had a chest x-ray done and it was unremarkable. The repeat CT scan showed again the sigmoid thickened area at the top of his bladder and probably two loops of small bowel involved as well. The radiologist was concerned on this occasion this could be a tumor. Once again, his white blood cell count returned normal with antibiotics. I had explained to Miguel and his significant other that we needed to get him through a bowel prep and at least pass the camera up to this area. He understands colonoscopy after we discussed it in detail. There is risk including, but not limited to gas bloating, crampy abdominal pain, bleeding, perforation requiring surgery, and missed diagnosis. Given his general overall health condition, we did ask for monitored anesthesia care with propofol infusion. That worked out very nicely. He and his significant other had expressed understanding and wished to proceed. DESCRIPTION OF PROCEDURE: Miguel was taken into our endoscopy suite and placed in the left lateral decubitus position. He was given monitored anesthesia care with propofol infusion per our nurse social and human services assistant. A digital rectal exam was performed and he does have moderate to large circumferential external hemorrhoids. His sphincter tone was moderate after infusion of propofol. I could not palpate any masses. His prostate gland is rather diminutive but indurated. The adult colonoscope was introduced and advanced under direct visualization of the camera. Even after 3/4th of a gallon of Gatorade with polyethylene glycol, he still had some liquid particulate stool matter. We passed the scope up to the top of the rectum at about 18 cm. As we went into the distal sigmoid colon, we encountered the mass at 22 cm. We made several efforts to look around and see if we could pass the scope any further. This was not possible. We went ahead and took multiple pictures and multiple cold biopsies of this area. After this, the scope was slowly withdrawn. We could see some diverticula in that distal sigmoid colon. They are moderate in size. Once in the rectum, the scope was retroflexed and he does have moderate internal hemorrhoid columns as well. After this, the gas was suctioned out and the colonoscope removed. Miguel tolerated the procedure quite well. RECOMMENDATIONS: Miguel will be returning to his room on Internal Medicine Service. We are going to let him have a full liquid diet. I will talk to the hospitalist service. Derik Zuniga MD ALB/MODL /[id number] Electronically Signed By: DERIK ZUNIGA MD 11/08/23 1707 PATIENT NAME: MIGUEL RAMOS OPERATIVE REPORT DATE OF : 50 REPORT #: [id number] PHYSICIAN: DERIK ZUNIGA MD PCP: DEE JUNE MD REPORT IS CONFIDENTIAL AND NOT TO BE RELEASED WITHOUT AUTHORIZATION [address] [place], [place] [address] Signed cc: Ander Parra MD, PH.D. MD Dr. Dee Jolly MD Copies: ANDER PARRA MD, ANDREW L MD ROGERS, AIMEE MD ~ Electronically Signed By: DERIK ZUNIGA MD 11/08/23 1707 PATIENT NAME: MIGUEL RAMOS OPERATIVE REPORT DATE OF : 50 REPORT #: [id number] PHYSICIAN: DERIK ZUNIGA MD PCP: DEE JUNE MD REPORT IS CONFIDENTIAL AND NOT TO BE RELEASED WITHOUT AUTHORIZATION
--- NOTE | 2023-11-08 19:30 | NUR ---
REPORT RECIEVED FROM DAY SHIFT RN. PATIENT RESTING IN BED WITH EYES CLOSED. RESPIRATIONS EVEN AND UNLABORED. CALL LIGHT IN REACH.
--- NOTE | 2023-11-08 22:37 | NUR ---
PATIENT RESTING IN BED. VS AND I&Os OBTAINED AND RECORDED. R HAND IV LEAKING. IV DCd WNL WITH IV TIP INTACT. ASSESSMENT COMPELTE. PATIENT REPORTS NO CURRENT PAIN. NO FURTHER NEEDS. CALL LIGHT IN REACH. NEW BAG IV ABX INFUSING PER ORDER.
--- NOTE | 2023-11-09 00:05 | NUR ---
CALL LIGHT ANSWERED. PATIENT ASSISTED TO BSC WITH MINIMAL SBA. PATIENT LEFT WITH CALL LIGHT FOR PRIVACY.
--- NOTE | 2023-11-09 00:45 | NUR ---
NOTIFIED OF POSTIVE BLOOD CULTURE. NO NEW ORDERS AT THIS TIME DUE TO PATIENT ALREADY BEING ON ABX.
[2023-11-09 01:39] VITALS: BP 117/66
--- NOTE | 2023-11-09 01:40 | NUR ---
PATIENT RESTING IN BED. VS AND I&Os OBTAINED AND RECORDED. NO FURTHER NEEDS. CALL LIGHT IN REACH.
--- NOTE | 2023-11-09 02:14 | NUR ---
CALL LIGHT ANSWERED. PATIENT UP TO BSC WITH 1P SBA TO VOID. PATIENT LEFT WITH CALL LIGHT FOR PRIVACY.
--- NOTE | 2023-11-09 02:36 | NUR ---
PATIENT BACK TO BED INDEPENDENTLY. THIS RN EMPTIED BSC. PATIENT HAS NO FURTHER NEEDS. BILAT SCDs IN PLACE. CALL LIGHT IN REACH.
--- NOTE | 2023-11-09 04:23 | NUR ---
PATIENT RESTING IN BED ON BACK. AWAKENS EASILY. NO FURTHER NEEDS. CALL LIGHT IN REACH.
[2023-11-09 06:00] VITALS: BP 134/71
--- NOTE | 2023-11-09 06:01 | NUR ---
PATIENT RESTING IN BED. SCHEDULED IV ABX INFUSING PER ORDER. DEPENDED EDEMA NOTED ON BILAT UPPER EXTREMITIES. BILAT UPPER EXTREMITIES ELEVATED ON PILLOWS. ASSESSMENT COMPLETE. PATIENT DENIES PAIN. VS AND I&Os OBTAINED AND RECORDED. NO FURTHER NEEDS. CALL LIGHT IN REACH.
[2023-11-09 06:31] LABS: BASOPHILS 0.7 % (0-2); EOSINOPHILS 3.8 % (0-6); HEMATOCRIT 26.4 % (35.0-50.0); HEMOGLOBIN 8.2 g/dL (12.0-18.0); MCHC 31.2 g/dl (30-36); MCV 73.6 fl (81-99); MONOCYTES 13.4 % (0-12); NEUTROPHILS 70.1 % (39-80); PLATELET COUNT 202 K/uL (140-440); RBC 3.59 M/ul (4.3-5.7); RDW 19.3 (10.5-15.0)
--- NOTE | 2023-11-09 06:37 | NUR ---
SCHEDULED MED PROVIDED. PT EDUCATED ON IV FLUID DC AND DIET CHANGE, QUESTIONS ANSWERED. URINAL PROVIDED. PT STATES NO OTHER NEEDS. CALL LIGHT IN REACH.
[2023-11-09 06:41] LABS: ALBUMIN 1.3 g/dL (3.4-5.0); ALBUMIN/GLOBULIN RATIO 0.39 (1.1-2.4); ANION GAP 12.2 (7-21); BILIRUBIN, TOTAL 0.3 ng/dL (0.2-1.0); BUN/CREATININE RATIO 8.86 (6.0-28.6); CALCIUM 7.5 mg/dL (8.5-10.1); CREATININE, SERUM 0.79 mg/dL (0.70-1.30); MAGNESIUM 1.6 mg/dL (1.8-2.4); PHOSPHORUS, INORGANIC 3.2 mg/dL (2.5-4.9); POTASSIUM 3.2 mmol/L (3.5-5.1); PROTEIN, TOTAL 4.6 g/dL (6.4-8.2)
--- NOTE | 2023-11-09 07:02 | NUR ---
SCHEDULED MEDS PROVIDED. PT STATES NO OTHER NEEDS. CALL LIGHT IN REACH.
--- NOTE | 2023-11-09 07:20 | NUR ---
RECEIVED REPORT FROM ADRIENNE PAREKH. PT SITTING UP IN BED EATING BREAKFAST. PT STATES NO NEEDS AT THIS TIME. CALL LIGHT WITHIN REACH.
--- NOTE | 2023-11-09 08:30 | NUR ---
Pt discussed in 829 meeting and plan is for pt to dc to office in [facility] today for appt with colorectal surgeon. This was set up by Dr. Rosado. Notified by charge nurse, spouse is stating they cannot go as he and both have vision problems. I will call the at 9am when meeting is over.
--- NOTE | 2023-11-09 08:30 | NUR ---
PT AWAKE IN BED. PT DENIES PAIN AT THIS TIME. PT IS ABLE TO MOVE [place] [facility] INDEPENDENTLY, IS EXPERIENCING SOME CONTINUED WEAKNESS, STATES HIS HAS GOTTEN A WALKER TO USE AT HOME. LUNG SOUNDS DIMINISHED, PT DENIES SOB. PT DENIES NUMBNESS OR TINGLING. BUE EDEMA IS 2+ THIS MORNING, BLE 1+. PT STATES NO NEEDS AT THIS TIME, CALL LIGHT WITHIN REACH.
--- NOTE | 2023-11-09 09:00 | NUR ---
Called and spoke with Genevieve. She states she plans on taking pt to and was notified by the surgeons office yesterday of his appt at 2 pm today. She states there is not a concern for her to drive and she will take Miguel. I updated the charge nurse and she states Miguel is very anxious today. Let her know Genevieve is on her way in and aware of the plans.
[2023-11-09 09:28] LABS: RBC, LEUKOREDUCED 18212401356100R
[2023-11-09 09:43] VITALS: BP 127/67
[2023-11-09 10:25] VITALS: BP 127/67
--- NOTE | 2023-11-09 10:26 | NUR ---
DR. KAUR AT THE BEDSIDE. PT AND HAVE QUESTIONS ABOUT DISCHARGE, ANSWERED. PT STATES NO FURTHER NEEDS AT THIS TIME, CALL LIGHT WITHIN REACH.
[2023-11-09] MEDS ORDERED: CIPROFLOXACIN500 MG PO (10:35)
[2023-11-09] MEDS ORDERED: METRONIDAZOLE500 MG PO (10:36)
--- NOTE | 2023-11-09 11:30 | NUR ---
PT DRESSES SELF IN OWN CLOTHES. IV DC'D WNL, WRAPPED IN GAUZE AND COBAN PER PROTOCOL. PT EDUCATION AND DISCHARGE PACKET PROVIDED, PT AND VERBALIZE UNDERSTANING OF EDUCATION, FOLLOW-UPS, MEDICATIONS, INSTRUCTIONS, TEACH BACK PERFORMED. PT AND STATE ALL QUESTIONS HAVE BEEN ANSWERED. VSS. PT WHEELED TO FRONT OF BUILDING WITH ALL PERSONAL BELONGINGS BY NURSING PERSONEL.
--- NOTE | 2023-11-10 14:17 | PATH ---
[facility] [address] [place], [place] [address] Signed SPECIMEN(S): A SIGMOID BIOPSY, 22 CM SPECIMEN SOURCE: A. SIGMOID BIOPSY, 22 CM CLINICAL HISTORY: Possible colon neoplasm. Diverticulosis, internal/external hemorrhoids, sigmoid tumor 22 cm. FINAL PATHOLOGIC DIAGNOSIS: Colon, sigmoid at 22 cm, biopsy: - Colonic mucosa with no significant pathologic changes COMMENT: These findings do not explain the reported clinical impression of a sigmoid tumor. Correlation with clinical and endoscopic information is needed to ensure the targeted lesion was adequately sampled. BRP MICROSCOPIC EXAMINATION: Histologic sections of all submitted blocks are examined by light microscopy. These findings, together with the gross examination, support the pathologic diagnosis. GROSS DESCRIPTION: The specimen, labeled and designated "Marc sigmoid biopsy 22 cm," is received in formalin and consists of four salgado soft tissue fragments, ranging from 0.2-0.3 cm. Entirely submitted in (A1). VB (under the direct supervision of a pathologist) The Gross Description was prepared using a voice recognition system. The report was reviewed for accuracy; however, sound-alike word errors, addition and/or deletions may occur. If there is any question about this report, please contact Client Services. ADDITIONAL NOTES: Immunohistochemical and/or in situ hybridization studies if performed in this case included appropriate positive controls that reacted as expected. This test was developed and its performance characteristics determined by [facility]. It has not been cleared or approved by the U.S. Food and Drug Administration. The FDA has determined that such clearance or approval is not PATIENT NAME: LOREN RAMOS PATHOLOGY DATE OF : 50 REPORT #: [id number] PHYSICIAN: KYLEIGH SAAVEDRA PCP: RITO JUNE MD REPORT IS CONFIDENTIAL AND NOT TO BE RELEASED WITHOUT AUTHORIZATION [address] [place], [place] [address] Signed necessary. This test is used for clinical purposes. It should not be regarded as investigational or for research. [facility] is certified under the Clinical Laboratory Improvement Amendments of 1988 (CLIA) as qualified to perform high complexity clinical laboratory testing. PERFORMING LABORATORY: Technical component was performed by [facility], [address] [place] [address] (CLIA# [id number]). Professional interpretation was performed by [facility], [address] [place] [address] (CLIA#: [id number]). Diagnostician: Tano Cervantes MD Pathologist Electronically Signed 11/10/2023 Copies: ~ PATIENT NAME: LOREN RAMOS PATHOLOGY DATE OF : 50 REPORT #: [id number] PHYSICIAN: KYLEIGH SAAVEDRA PCP: RITO JUNE MD REPORT IS CONFIDENTIAL AND NOT TO BE RELEASED WITHOUT AUTHORIZATION
[2023-11-10 20:37] LABS: PREALBUMIN 3.1 mg/dL (20.0-40.0)
== END 2023-11-09 11:30 | disposition home or self-care (01) | DRG 375 ==
LOC: ED 14:18 → MS 21:08
PROVIDERS: Colon & Rectal Surgery; Family Medicine; ADMIT Family Medicine; ATTEND Family Medicine
PROC: 30233N1 Transfusion of Nonautologous Red Blood Cells into Peripheral Vein, Percutaneous Approach (ICD-10-PCS; 2023-11-07)
PROC: 0DBN8ZX Excision of Sigmoid Colon, Via Natural or Artificial Opening Endoscopic, Diagnostic (ICD-10-PCS; principal; 2023-11-08 08:15)
DX: C18.7 Malignant neoplasm of sigmoid colon (principal); E46 Unspecified protein-calorie malnutrition; K57.92 Diverticulitis of intestine, part unspecified, without perforation or abscess without bleeding; E87.6 Hypokalemia; R53.1 Weakness; Z66 Do not resuscitate; E83.42 Hypomagnesemia; J44.9 Chronic obstructive pulmonary disease, unspecified; K57.30 Diverticulosis of large intestine without perforation or abscess without bleeding; K64.8 Other hemorrhoids; E86.0 Dehydration; I10 Essential (primary) hypertension; W18.30XA Fall on same level, unspecified, initial encounter; D50.9 Iron deficiency anemia, unspecified; K64.4 Residual hemorrhoidal skin tags; Z79.899 Other long term (current) drug therapy; Z87.891 Personal history of nicotine dependence; Z79.82 Long term (current) use of aspirin; Z79.2 Long term (current) use of antibiotics; Z68.25 Body mass index [BMI] 25.0-25.9, adult; Z85.46 Personal history of malignant neoplasm of prostate; Z90.89 Acquired absence of other organs; Z98.890 Other specified postprocedural states; Z98.52 Vasectomy status; Z98.41 Cataract extraction status, right eye
CPT/HCPCS: 00811; 36415; 71045; 74177; 80053; 81001; 82378; 83735; 84100; 84134; 84484; 85025; 85060; 86850; 86900; 86901; 86922; 87040; 93005; 93010; 94640; 94760; 94762; 97162; 97535; A9270; J1650; J2001; J2543; J2704; J3480; J3490; J7060; J7121; P9016; Q9967

== ENCOUNTER 2024-02-02 07:35 | Day surgery (SDC) | payer OTHER ==
[2024-01-29 08:22] VITALS: BP 115/62
[~2024-02-02] VITALS: Ht 180.3 cm; Wt 79.1 kg
[~2024-02-02 07:35] MED LIST changes: +BREO ELLIPTA 21 EACH INH; +CEFAZOLIN SODIUM 2 GM/20 ML SYR IV SCH; +CIPROFLOXACIN500 MG PO; +DEXAMETHASONE SOD PHOS 4 MG/ML VIAL ONE; +FAMOTIDINE 20 MG/ 2 ML VIAL ONE; +HEParin SOD (PORCINE) 5,000 UNIT/0.5 ML SYR SUB-Q SCH; +IBLOOD GLUCOSE TEST STRIP 1 EA TEST VI PRN; +KETOROLAC TROMETHAMINE 30 MG/ML VIAL ONE; +LACTATED RINGER'S 1,000 ML IV ONE; +LACTATED RINGER'S 1,000 ML IV SCH; +LIDOCAINE HCL 1% 5 ML SDV INJ ONE; +METOCLOPRAMIDE HCL 10 MG/2 ML SDV ONE; +MIDAZOLAM HCL 2 MG/2 ML VIAL ONE; +fentaNYL citrate 100 MCG/2 ML VIAL ONE; +ondansetron HCL 4 MG/2 ML VIAL ONE; +propofoL 200 MG/20 ML VIAL ONE
[2024-02-02 07:45] VITALS: BP 141/68
[2024-02-02] MEDS ORDERED: droPERidol 5 MG/2 ML VIAL IV PRN (08:30)
[2024-02-02] MEDS ORDERED: fentaNYL citrate 50 MCG/ML SDV IV PRN (08:30)
[2024-02-02] MEDS ORDERED: METOCLOPRAMIDE HCL 10 MG/2 ML SDV IV PRN (08:30)
[2024-02-02] MEDS ORDERED: ondansetron HCL 4 MG/2 ML VIAL IV PRN ×2 (08:30→11:00)
[2024-02-02] MEDS ORDERED: IBLOOD GLUCOSE TEST STRIP 1 EA TEST VI PRN (08:30)
[2024-02-02] MEDS ORDERED: NALOXONE HCL 0.4 MG SYR IV PRN ×2 (08:30→11:00)
[2024-02-02] MEDS ORDERED: MEPERIDINE HCL 25 MG/1 ML VIAL IV PRN (08:30)
[2024-02-02] MEDS ORDERED: PROCHLORPERAZINE EDISYLATE 10 MG/2 ML VIAL IV PRN ×2 (08:30→11:00)
[2024-02-02] MEDS ORDERED: SODIUM CHLORIDE 0.9% 100 ML IV ONE (09:12)
[2024-02-02] MEDS ORDERED: SODIUM CHLORIDE 0.9% 40 ML IV ONE (09:12)
[2024-02-02] MEDS ORDERED: BUPIVACAINE HCL 0.25% 50 ML MDV ONE (09:12)
[2024-02-02] MEDS ORDERED: HEParin SOD (PORCINE) 5,000 UNIT/0.5 ML SYR ONE (09:12)
[2024-02-02] MEDS ORDERED: LIDOCAINE 1% W/ EPI 1:200,000 30 ML SDV ONE (09:12)
[2024-02-02] MEDS ORDERED: iopamidoL 30 ML VIAL ONE (09:12)
[2024-02-02] MEDS ORDERED: ePHEDrine sulfate 50 MG/ML AMP ONE (10:10)
[2024-02-02] MEDS ORDERED: HYDROmorphone HCL 1 MG/ML SYR IV PRN (11:00)
[2024-02-02] MEDS ORDERED: HYDROCODONE/ACETA 5/325 TAB PO PRN (11:00)
[2024-02-02 11:28] VITALS: BP 136/66
--- NOTE | 2024-02-02 12:53 | OR ---
[facility] [address] [place], [place] [address] Signed DATE OF OPERATION: 02/02/2024 SURGEON: Derik Zuniga MD PREOPERATIVE DIAGNOSIS: Colon cancer. POSTOPERATIVE DIAGNOSIS: Colon cancer. PROCEDURES: 1. Placement of right IJ Myle-X-Lxtltppz. 2. Physician directed ultrasound. 3. Physician directed fluoroscopy. ESTIMATED BLOOD LOSS: None. INDICATIONS: Miguel is a 73-year-old gentleman who has been under treatment for his colon cancer. He had his low anterior resection with a protecting loop ileostomy on November 18, 2023. He has been to see his medical oncologist and he is awaiting to undergo chemotherapy. He was asked to see me as a local general surgeon to have his Aygo-U-Khnfnekw placed. I met with Miguel and his in the office and I reviewed with him the nature of a Smdd-D-Xnakzmbl. We have reviewed the expected intraop and postop course. There is risk including, but not limited to bleeding, infection, scarring, change in contour of the skin, pneumothorax requiring chest tube placement and catheter embolization requiring retrieval. They had expressed understanding and wished to proceed. PROCEDURE IN DETAIL: I met with Miguel and his in our preop area. After this, Miguel was taken into the operating room and placed in the supine position under general LMA anesthesia. He was given preoperative antibiotics along with subcutaneous heparin. SCDs were utilized. He was prepped and draped in the usual sterile fashion. We used ultrasound to easily identify his right internal jugular vein and carotid artery. We watched the needle pass directly into the vein with return of dark nonpulsatile venous blood. The wire was able to pass without resistance. We checked the position of wire with the help of the ultrasound in our fluoroscopy unit. We then dilated the tract and checked the position of the dilator. After this, we made an incision over his right chest wall just below the clavicle slightly above one of his tattoos. We developed the pocket and then we Electronically Signed By: DERIK ZUNIGA MD 02/02/24 1253 PATIENT NAME: MIGUEL RAMOS OPERATIVE REPORT DATE OF : 50 REPORT #: [id number] PHYSICIAN: DERIK ZUNIGA MD PCP: DEE JUNE MD REPORT IS CONFIDENTIAL AND NOT TO BE RELEASED WITHOUT AUTHORIZATION [facility] [address], [place] [address] Signed went ahead and passed our catheter down to about 14 cm and checked the position with the fluoroscopy unit. We then tunneled the catheter around the neck over to the chest wall. It was cut to length and placed onto the hub with the help of the collar. The port was able to draw and flush quite nicely. We checked the full length of the hub and the catheter and it is in good position without any kinks. We then filled the catheter with concentrated heparin. It was sutured in place with several interrupted Prolene sutures. The wound was irrigated and suctioned out until clear. We had injected local anesthetic into the chest wall as well as his neck. We then closed the skin and dermis with interrupted 3-0 subcuticular Monocryl sutures. A 5-0 subcuticular stitch was used to close the incision on his neck. We then used 5-0 fast absorbing plain gut suture in a running fashion to close the skin on the chest and his right neck. Dry gauze and tape were applied. Miguel was awakened from his anesthesia, extubated in the OR, and taken to recovery room in stable condition. Derik Zuniga MD ALB/MODL /[id number] cc: MD Dr. Dee Rubio MD Copies: CARLYN VINES MD, ANDREW L MD ~ Electronically Signed By: DERIK ZUNIGA MD 02/02/24 1253 PATIENT NAME: MIGUEL RAMOS OPERATIVE REPORT DATE OF : 50 REPORT #: [id number] PHYSICIAN: DERIK ZUNIGA MD PCP: DEE JUNE MD REPORT IS CONFIDENTIAL AND NOT TO BE RELEASED WITHOUT AUTHORIZATION
== END 2024-02-02 12:55 | disposition home or self-care (01) ==
LOC: DS 07:35
PROVIDERS: ATTEND Colon & Rectal Surgery
DX: C18.9 Malignant neoplasm of colon, unspecified (principal); I10 Essential (primary) hypertension; J44.9 Chronic obstructive pulmonary disease, unspecified
CPT/HCPCS: 00532; 71045; 77001; C1788; J0690; J1100; J1644; J1885; J2250; J2405; J2704; J2765; J3010; J7121

== ENCOUNTER 2024-09-04 08:20 | Day surgery (SDC) | payer OTHER ==
[2024-08-28 11:24] VITALS: BP 144/77
[~2024-09-04] VITALS: Ht 180.3 cm; Wt 84.1 kg
[~2024-09-04 08:20] MED LIST changes: +BAYER CHEWABLE81 MG PO; -DEXAMETHASONE SOD PHOS 4 MG/ML VIAL ONE; -FAMOTIDINE 20 MG/ 2 ML VIAL ONE; -HEParin SOD (PORCINE) 5,000 UNIT/0.5 ML SYR SUB-Q SCH; +IRON325 M1 PO; -KETOROLAC TROMETHAMINE 30 MG/ML VIAL ONE; -LACTATED RINGER'S 1,000 ML IV ONE; -METOCLOPRAMIDE HCL 10 MG/2 ML SDV ONE; -MIDAZOLAM HCL 2 MG/2 ML VIAL ONE; +SEVOFLURANE 250 ML BTL INH ONE; -fentaNYL citrate 100 MCG/2 ML VIAL ONE; -ondansetron HCL 4 MG/2 ML VIAL ONE; -propofoL 200 MG/20 ML VIAL ONE
[2024-09-04 08:30] VITALS: BP 144/65
[2024-09-04] MEDS ORDERED: LIDOCAINE HCL 1% 30 ML SDV ONE (09:36)
[2024-09-04] MEDS ORDERED: LIDOCAINE HCL 2% 5 ML SDV ONE (09:43)
[2024-09-04] MEDS ORDERED: DEXAMETHASONE SOD PHOS 4 MG/ML VIAL ONE (09:43)
[2024-09-04] MEDS ORDERED: propofoL 200 MG/20 ML VIAL ONE (09:43)
[2024-09-04] MEDS ORDERED: fentaNYL citrate 100 MCG/2 ML VIAL ONE (09:43)
[2024-09-04] MEDS ORDERED: ondansetron HCL 4 MG/2 ML VIAL ONE (09:43)
[2024-09-04] MEDS ORDERED: ePHEDrine sulfate 50 MG/ML AMP ONE (10:21)
[2024-09-04] MEDS ORDERED: HYDROmorphone HCL 1 MG/ML SYR IV PRN (11:15)
[2024-09-04] MEDS ORDERED: NALOXONE HCL 0.4 MG SYR IV PRN (11:15)
[2024-09-04] MEDS ORDERED: HYDROCODONE/ACETA 5/325 TAB PO PRN (11:15)
[2024-09-04] MEDS ORDERED: PROCHLORPERAZINE EDISYLATE 10 MG/2 ML VIAL IV PRN (11:15)
[2024-09-04] MEDS ORDERED: ondansetron HCL 4 MG/2 ML VIAL IV PRN (11:15)
--- NOTE | 2024-09-04 11:15 | NUR ---
09/04/24 1115 Freya Estrada 1059- PT ARRIVES TO THE PACU WITH A NATURAL AIRWAY AND ON ROOM AIR. BREATHING IS EVEN AND UNLABORED. PT IS SITTING UP IN BED WITH EYES OPEN AND FOLLOWING COMMANDS EASILY. ALL MONITORS PUT IN PLACE. LR INFUSING IN R HAND. SURGICAL SITE TO THE RIGHT CHEST BELOW THE CLAVICLE IS CLEAN, DRY AND INTACT. PT DENIES PAIN AND NAUSEA. VSS. ICE PACK APPLIED. 1110- PT CONTINUES TO DENY PAIN AND NAUSEA. PLAN OF CARE DISCUSSED.
[2024-09-04 11:30] VITALS: BP 142/63
--- NOTE | 2024-09-04 11:30 | NUR ---
PT ARRIVES TO DS UNIT FROM PACU VIA STRETCHER. PT IS A&O AND ASKING APPROPRIATE QUESTIONS AT THIS TIME. PT REPORTS NO PAIN OR NAUSEA. ICE PACK IN PLACE ON PILLOW CASE FOR BARRIER. SURGICAL SITE IS C/D/I, NO SIGNS OF BLEEDING. PT ON RA W/O2 >90%, RESPIRATIONS EVEN AND UNLABORED, NO SIGNS OF DISTRESS. REPORT RECEIVED FROM TERRENCE DELEON, AT BEDSIDE. CALL LIGHT WITHIN REACH, ICE WATER/CRACKERS PROVIDED. PT AND PT REPORT NO FURTHER NEEDS OR QUESTIONS AT THIS TIME.
--- NOTE | 2024-09-04 11:35 | NUR ---
PT PLACED ON 2 L OF O2 VIA NC D/T O2 DROPPING TO 87-88% ON RA VIA CONT PULSE OX. CALL LIGHT WITHIN REACH, AT BEDSIDE.
--- NOTE | 2024-09-04 12:20 | NUR ---
IN PT ROOM TO TITRATE PT FROM 2 L OF O2 TO RA. PT 100% ON 2L OF O2 VIA NC. CONT PULSE OX IN PLACE. CALL LIGHT WITHIN REACH, AT BEDSIDE.
--- NOTE | 2024-09-04 12:35 | NUR ---
ANSWERED PT CALL LIGHT D/T PT REPORTING NEED TO URINE VOID. PT O2 >90% VIA CONT PULSE OX. PT SITS AT BEDSIDE AND REPORTS NO NAUSEA/DIZZINESS. PT TO RESTROOM W/THIS RN STANDBY ASSIST. PT URINE VOIDS 125 ML OF CLEAR/YELLOW URINE. PT BACK TO ROOM AND ASSISTING TO GET DRESSED AT THIS TIME. CALL LIGHT WITHIN REACH.
[2024-09-04 12:40] VITALS: BP 138/53
--- NOTE | 2024-09-04 12:45 | NUR ---
DC EDUCATION PROVIDED AT THIS TIME TO PT AND PT . BOTH REPORT NO FURTHER QUESTIONS AT THIS TIME. IV DC'ED, GAUZE/COBAN IN PLACE. PT OFF OF UNIT VIA WC TO PASSENGER SIDE OF 'S VEHICLE. PT AND PT REPORT NO FURTHER NEEDS OR QUESTIONS AT THIS TIME. ALL BELONGINGS IN PT POSSESSION.
--- NOTE | 2024-09-09 06:57 | OR ---
[facility] [address] [place], [place] [address] Signed DATE OF OPERATION: 09/04/2024 SURGEON: Derik Zuniga MD PREOPERATIVE DIAGNOSES: 1. 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 2. Right internal jugular Jdmt-X-Krnmslad. POSTOPERATIVE DIAGNOSES: 1. 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 2. Right internal jugular Slrw-E-Mrimnndn. PROCEDURE: Removal right internal jugular Paef-U-Mytigekq. ESTIMATED BLOOD LOSS: None. INDICATIONS: Miguel is a 73-year-old gentleman, who went through a low anterior resection in November 2023 for his sigmoid colon cancer. He has finished up his chemotherapy. He has come back to have the right IJ Wlkv-N-Lskvyjrb removed. I have known Miguel and his now for over a year. I explained to Miguel the process of taking out the Hwyi-B-Lybxpmoc. We under sterile conditions. It will be a same-day surgery. He will go home afterwards. There is risk including, but not limited to bleeding, infection, scarring, change in contour of the skin, catheter fracture with embolization requiring retrieval and other unforeseen comorbidities. Miguel and his had expressed understanding and wished to proceed. PROCEDURE IN DETAIL: I met with Miguel and his in our preop area. We could all see and identify the Wmkj-T-Ywbfxzax in the right internal jugular vein and right chest wall. It was marked appropriately. After this, Miguel was taken to the operating room and placed in the supine position under general LMA anesthesia. He was given preoperative antibiotics along with subcutaneous Lovenox. SCDs were utilized. He was prepped and draped in the usual sterile fashion. In the reverse Trendelenburg position then, we injected some local anesthetic around the hub of his catheter on the right chest wall. We opened up his previous incision sharply with a knife and went down and around the catheter and hub and the pseudo capsule with the help of the cautery. We worked our way back to the catheter itself. We carefully dissected that free and then cut the Prolene stitch Electronically Signed By: DERIK ZUNIGA MD 09/09/24 0657 PATIENT NAME: MIGUEL RAMOS OPERATIVE REPORT DATE OF : 50 REPORT #: [id number] PHYSICIAN: DERIK ZUNIGA MD PCP: RITO JUNE MD REPORT IS CONFIDENTIAL AND NOT TO BE RELEASED WITHOUT AUTHORIZATION [facility] [address] [place] [id number] Signed sharply with a 15 blade knife. We placed a 2-0 Prolene pursestring suture around the catheter as it went underneath the skin at the clavicle. We pulled the catheter out without any resistance whatsoever. We examined the catheter, it was completely intact all the way to the tip. We closed the 2-0 Prolene pursestring suture with good results. We then irrigated the wound until clean. We closed the wound in layers with interrupted 3-0 subcuticular Monocryl suture. The skin edges were 1with a running 5-0 fast absorbing plain gut suture. Dry gauze and tape was then applied. Miguel was then transferred to his hospital bed and taken to recovery room in stable condition. MD FREEMAN Jolly/LEANNAL /[id number] cc: MD Derik Rubio MD Dr. Deborah Woodbury Copies: CARLYN VINES MD, ANDREW L MD ~ Electronically Signed By: DERIK ZUNIGA MD 09/09/24 0657 PATIENT NAME: MIGUEL RAMOS OPERATIVE REPORT DATE OF : 50 REPORT #: [id number] PHYSICIAN: DERIK ZUNIGA MD PCP: RITO JUNE MD REPORT IS CONFIDENTIAL AND NOT TO BE RELEASED WITHOUT AUTHORIZATION
== END 2024-09-04 12:45 | disposition home or self-care (01) ==
LOC: DS 08:20
PROVIDERS: ATTEND Colon & Rectal Surgery
PROC: 0JPT0WZ Removal of Totally Implantable Vascular Access Device from Trunk Subcutaneous Tissue and Fascia, Open Approach (ICD-10-PCS; principal; 2024-09-04 10:30)
DX: Z45.2 Encounter for adjustment and management of vascular access device (principal); C18.7 Malignant neoplasm of sigmoid colon; Z90.49 Acquired absence of other specified parts of digestive tract; I11.0 Hypertensive heart disease with heart failure; I50.33 Acute on chronic diastolic (congestive) heart failure; I48.92 Unspecified atrial flutter; E61.1 Iron deficiency; J44.9 Chronic obstructive pulmonary disease, unspecified; Z79.82 Long term (current) use of aspirin; Z79.899 Other long term (current) drug therapy
CPT/HCPCS: 00532; J0690; J1100; J2003; J2405; J2704; J3010; J7121

== ENCOUNTER 2025-01-24 09:43 | Inpatient (IN) | payer OTHER ==
[2025-01-24] VITALS (8 sets, daily range): BP systolic 113–138; BP diastolic 57–88
[~2025-01-24] VITALS: Ht 180.3 cm; Wt 98.6 kg
[~2025-01-24 09:43] MED LIST changes: -CEFAZOLIN SODIUM 2 GM/20 ML SYR IV SCH; -IBLOOD GLUCOSE TEST STRIP 1 EA TEST VI PRN; -LACTATED RINGER'S 1,000 ML IV SCH; -LIDOCAINE HCL 1% 5 ML SDV INJ ONE; -SEVOFLURANE 250 ML BTL INH ONE
[2025-01-24] MEDS ORDERED: BREO ELLIPTA 21 EACH INH (10:04)
[2025-01-24] MEDS ORDERED: methylPREDNISolone SOD SUCC 125 MG/2 ML VIAL IV ONE (10:30)
[2025-01-24] MEDS ORDERED: ALBUTEROL/IPRATROPIUM 3 ML NEB INH ONE (10:30)
[2025-01-24 10:40] LABS: BASOPHILS 0.3 % (0-2); EOSINOPHILS 0.5 % (0-6); HEMATOCRIT 48.3 % (35.0-50.0); HEMOGLOBIN 15.6 g/dL (12.0-18.0); LYMPHOCYTES 10.5 % (24-44); MCH 28.4 (27-36); MCHC 32.2 g/dl (30-36); MCV 88.2 fl (81-99); MONOCYTES 14.2 % (0-12); NEUTROPHILS 74.5 % (39-80); PLATELET COUNT 177 K/uL (140-440); RBC 5.48 M/ul (4.3-5.7); RDW 16.6 (10.5-15.0)
[2025-01-24 11:03] LABS: ALBUMIN 3.4 g/dL (3.4-5.0); ALBUMIN/GLOBULIN RATIO 0.85 (1.1-2.4); ANION GAP 7.6 (7-21); BILIRUBIN, TOTAL 1.1 mg/dL (0.2-1.0); BUN/CREATININE RATIO 15.12 (6.0-28.6); CREATININE, SERUM 3.24 mg/dL (0.70-1.30); MAGNESIUM 2.3 mg/dL (1.8-2.4); POTASSIUM 5.6 mmol/L (3.5-5.1); PROTEIN, TOTAL 7.4 g/dL (6.4-8.2)
[2025-01-24] MEDS ORDERED: ALBUTEROL SULFATE 0.5% 2.5 MG/0.5 ML VIAL INH ONE (12:30)
[2025-01-24 12:46] LABS: PH, VENOUS 7.332 (7.31-7.41)
[2025-01-24] MEDS ORDERED: ALBUTEROL SULFATE 0.5% 2.5 MG/0.5 ML VIAL ONE (12:46)
[2025-01-24 13:10] LABS: ANION GAP 5.5 (7-21); BUN/CREATININE RATIO 15.11 (6.0-28.6); CALCIUM 8.6 mg/dL (8.5-10.1); CREATININE, SERUM 3.11 mg/dL (0.70-1.30); POTASSIUM 5.5 mmol/L (3.5-5.1)
[2025-01-24] MEDS ORDERED: ACETAMINOPHEN 325 MG TAB PO PRN (13:45)
[2025-01-24] MEDS ORDERED: FUROSEMIDE 40 MG/4 ML VIAL IV SCH (13:45)
[2025-01-24] MEDS ORDERED: ondansetron HCL 4 MG/2 ML VIAL IV PRN (13:45)
[2025-01-24] MEDS ORDERED: CEFTRIAXONE SODIUM 1 GM in SODIUM CHLORIDE 0.9% 100 ML IV SCH (14:00)
[2025-01-24] MEDS ORDERED: methylPREDNISolone SOD SUCC 40 MG/ML VIAL IV SCH (14:00)
--- NOTE | 2025-01-24 14:00 | EKG ---
[facility] [address] [facility] [place] [address] Signed Atrial fibrillation Low voltage QRS Abnormal ECG When compared with ECG of 07-NOV-2023 15:42, Atrial fibrillation has replaced Sinus rhythm Nonspecific T wave abnormality now evident in Inferior leads Confirmed by Verónica Goncalves MD ([id number]) on 01/24/2025 2:00:02 PM Electronically Signed By: VERÓNICA GONCALVES MD 01/24/25 1400 PATIENT NAME: LOREN RAMOS Electrocardiogram DATE OF : 50 PHYSICIAN: VERÓNICA GONCALVES MD REPORT #: [id number] REPORT IS CONFIDENTIAL AND NOT TO BE RELEASED WITHOUT AUTHORIZATION
--- NOTE | 2025-01-24 14:30 | NUR ---
PT ARRIVES TO ROOM 127 VIA STRETCHER TRANSPORTED BY THIS RN. PT ALERT AND ORIENTED. 02 VIA NC AT 2l, NO SOB NOTED, PT DENIES COMPLAINTS OF. PT ABLE TO STAND AND PIVOT TRANSFER TO BED WITHOUT ASSISTANCE, STEADY ON FEET. VS OBTAINED AND MONITOR APPLIED. PT DENIES PAIN. PT REMAINS IN AFIB WHICH WAS PRESENTING RYHTHM. PT ABLE TO ANSWER ALL ADMITING QUESTIONS WITHOUT DIFFICULTY AND ASKS APPROPRIATE QUESTIONS REGARDING ADMITTING DIAGNOSIS. SEE ASSESSMENT FOR FULL ASSESSMENT DETAILS. DENIES NEED TO VOID AT THIS TIME, WATER PROVIDED. CALL LIGHT AND TABLE WITHIN REACH.
--- NOTE | 2025-01-24 14:31 | NUR ---
UR CLINICAL REVIEW: CHU, MEETS INPT FOR COPD IV STEROIDS, OXYGEN USE-NOT BASELINE, HYPERCARBIA MIKHAIL [facility] INPT 01/24/2025 @ 4952 ORDER MATCHES REG AUTH PENDING. WILL SEND CLINICALS 01/26/25
[2025-01-24] MEDS ORDERED: ALBUTEROL SULFATE 0.083% 3 ML VIAL INH PRN (15:00)
--- NOTE | 2025-01-24 15:15 | NUR ---
RN IN ROOM TO ADMINISTER SCHEDULED MEDICATIONS - PT ALERT RESTING IN BED, REMAINS ORIENTED WITHOUT COMPLAINTS. VS STABLE. SANDWHICH BOX PROVIDED PT HAD NOT EATEN SINCE ARRIVAL TO ED. 02 DEMAND INCREASED WITH EATING, RECOVERS QUICKLY. DUE TO VOID, URNIAL PROVIDED.
[2025-01-24] MEDS ORDERED: dilTIAZem HCL 120 MG CAPCR PO SCH (15:24)
[2025-01-24] MEDS ORDERED: ASPIRIN 81 MG CHEW PO SCH (15:24)
[2025-01-24] MEDS ORDERED: METOPROLOL SUC100 MG PO (15:57)
[2025-01-24] MEDS ORDERED: VENTOLIN HFA18 GM INH (15:58)
--- NOTE | 2025-01-24 15:58 | NUR ---
MED REC COMPLETE
[2025-01-24] MEDS ORDERED: ALBUTEROL/IPRATROPIUM 3 ML NEB INH SCH (16:00)
--- NOTE | 2025-01-24 16:00 | NUR ---
PT EVAL COMPLETE - STAND BY USING FWW WITH VERBAL CUING. PT REQUIRING INCREASE 02 DEMAND WHILE AMBULATING, CURRENTLY 4l.
--- NOTE | 2025-01-24 16:43 | NUR ---
MELTING OPERATOR IN ROOM TO COMPLETE STUDY.
--- NOTE | 2025-01-24 17:57 | NUR ---
PT SITTING UP IN BED EATING DINER WITH AT BEDSIDE. PT DENIES COMPLAINTS OR NEEDS AT THIS TIME. VS STABLE, NO S/S OF DISTRESS OR WORSENING CONDITION NOTED. CALL LIGHT IN REACH.
[2025-01-24] MEDS ORDERED: SODIUM CHLORIDE 0.9% 1,000 ML IV SCH (18:30)
[2025-01-24] MEDS ORDERED: FUROSEMIDE 100 MG/10 ML VIAL IV ONE (18:45)
--- NOTE | 2025-01-24 19:41 | NUR ---
handoff report received from day shift RN. patient resting in bed with family at bedside. no acute distress noted. patient has no needs at this time. call light in reach.
[2025-01-24] MEDS ORDERED: BUDESONIDE 0.5 MG/2 ML VIAL INH SCH (20:00)
--- NOTE | 2025-01-24 20:46 | NUR ---
PATIENT ASSESSMENT COMPLETE. PATIENT SITTING UP AWAKE IN BED. PATIENT REMAINS ON 3L NC, TOLERATING WELL. PATIENT IV SITE SALINE LOCKED AND WNL. PATIENT ALERT AND ORIENTED X4. PATIENT DENIES ANY PAIN, NAUSEA, OR FEELING SOB AT THIS TIME. PATIENT PROVIDED WITH FRESH ICE WATER. PATIENT ENCOURAGED TO CALL WITH ANY NEEDS OR CONCERNS. CALL LIGHT IN REACH.
--- NOTE | 2025-01-24 22:05 | NUR ---
IN PATIENT ROOM FOR SCHEDULED MEDICATION ADMINISTRATION PER EMAR. PATIENT AWAKE SITTING UP IN BED. DENIES ANY NEEDS AT THIS TIME. VSS. CALL LIGHT IN REACH.
[2025-01-25] VITALS (13 sets, daily range): BP systolic 115–141; BP diastolic 60–92
--- NOTE | 2025-01-25 00:29 | NUR ---
patient sitting up awake in bed. denies any needs at this time. patient remains on 3L NC, SPO2 91%. no acute distress noted. patient has call light in reach.
--- NOTE | 2025-01-25 01:29 | NUR ---
patient resting in bed with eyes closed, RR 22. no acute distress noted. VSS. call light in reach.
--- NOTE | 2025-01-25 03:30 | NUR ---
patient resting with eyes closed, RR 21. patient has no needs at this time. call light in reach.
--- NOTE | 2025-01-25 04:54 | NUR ---
lab in room for morning lab draw. patient provided with fresh ice water. denies any pain, nausea, or feeling SOB. patient has no needs at this time. call light in reach.
[2025-01-25 05:22] LABS: BASOPHILS 0.1 % (0-2); HEMATOCRIT 43.8 % (35.0-50.0); HEMOGLOBIN 14.3 g/dL (12.0-18.0); LYMPHOCYTES 4.5 % (24-44); MCH 28.4 (27-36); MCHC 32.7 g/dl (30-36); MCV 86.9 fl (81-99); MONOCYTES 2.9 % (0-12); NEUTROPHILS 92.5 % (39-80); PLATELET COUNT 160 K/uL (140-440); RBC 5.04 M/ul (4.3-5.7); RDW 16.7 (10.5-15.0)
[2025-01-25 05:32] LABS: ANION GAP 9.5 (7-21); BUN/CREATININE RATIO 16.03 (6.0-28.6); CALCIUM 8.5 mg/dL (8.5-10.1); CREATININE, SERUM 3.43 mg/dL (0.70-1.30); MAGNESIUM 2.1 mg/dL (1.8-2.4); POTASSIUM 5.5 mmol/L (3.5-5.1)
--- NOTE | 2025-01-25 06:45 | NUR ---
patient bladder scan for 54ml. patient provided with fresh ice water. patient remains on 3L NC, SPO2 91%. patient denies any needs at this time. vital signs stable. call light in reach.
[2025-01-25] MEDS ORDERED: SODIUM CHLORIDE 0.9% 1,000 ML IV SCH (07:00)
--- NOTE | 2025-01-25 08:20 | NUR ---
PT ALERT AND RESTING IN BED WITH HOB ELEVATED LISTENING TO TV. PT STATES HE FEELS BETTER TODAY - DENIES SOB, STATES HE FEELS LIKE EDEMA HAS IMPROVED, DENIES PAIN OR DIFFICULTY FORMING THOUGHTS/WORDS. EDEMA IN LEFT FLANK THROUGH HIP WORSE TODAY FROM PREVIOUS ASSESSMENT, +3 PITTING. IV SITE PATENT WITH NS AT 500ML/HR RUNNING. PT EDUCATED ON CHF/FLUID RETENTION AND ALEX. PT STATES HE DRANK A LOT OF WATER THROUGH NIGHT/MORNING IN HOPES TO MAKE MORE URINE. VS STABLE. 3L NC 02 NEEDED TO SUSTAIN SPO2 88-92% AT REST IN BED. TITRATED TO 4L WHILE EATING BREAKFAST. FINE CRACKLES NOTED IN BILATERAL LUNG BASES, EXP WHEEZE THROUGHOUT. PT HAS NOT RECEIVED RT TREATMENT YET THIS AM. CURRENT POC REVIEWED WITH PT AND , ALL QUESTIONS ANSWERED.
[2025-01-25] MEDS ORDERED: ENOXAPARIN SODIUM 40 MG/0.4 ML SYR SUB-Q SCH (09:00)
[2025-01-25] MEDS ORDERED: ENOXAPARIN SODIUM 30 MG/0.3 ML SYR SUB-Q SCH (09:00)
[2025-01-25] MEDS ORDERED: SODIUM ZIRCONIUM CYCLOSILICATE 10 GM PACK PO ONE (09:30)
--- NOTE | 2025-01-25 09:56 | NUR ---
1L NS IVF COMPLETE - PT ENCOURAGED TO ATTEMPT TO USE URINAL. OTHERWISE DENIES COMPLAINTS OR NEEDS AT THIS TIME. VS STABLE ON MONITOR, CALL LIGHT IN REACH. AT BEDSIDE.
--- NOTE | 2025-01-25 11:26 | NUR ---
FAMILY AT BEDSIDE TO VISIT
[2025-01-25] MEDS ORDERED: PHARMACY RENAL DOSE ADJUSTMENT 1 DOSE MISC PO SCH (12:00)
--- NOTE | 2025-01-25 12:17 | NUR ---
PT SITTING UP IN BED AWAKE VISITING WITH FAMILY. NOON ASSESSMENT NOT SIGNIFICANTLY CHANGED FROM PREVIOUS, EDEMA THROUGHOUT TRUNK AND UPPER THIGHS REMAINS, PEDAL EDEMA NOT WORSE. LUNG SOUNDS DIM THROUGHOUT. VS REMAIN STABLE, NO CHANGE IN O2 NEEDS. LUNCH PROVIDED.
--- NOTE | 2025-01-25 13:03 | NUR ---
NOTIFIED OF PT DECREASING URINE OUTPUT - TOTAL 75ML SINCE 0700. PT ASSESSEMENT NOT SIGNIFICANTLY CHANGED, NO INCREASE IN 02 DEMAND, NO CHANGE IN VS. ORDERS ENTERED BY PROVIDER FOR RENAL US AND BMP NOW.
[2025-01-25 13:28] LABS: BUN/CREATININE RATIO 15.9 (6.0-28.6); CALCIUM 8.2 mg/dL (8.5-10.1); CREATININE, SERUM 3.71 mg/dL (0.70-1.30)
[2025-01-25 13:35] LABS: BILIRUBIN, URINE POSITIVE (negative); BLOOD/HGB, URINE NEGATIVE (Negative); KETONE, URINE TRACE (Negative); LEUK ESTERASE, URINE NEGATIVE (negative); NITRITE, URINE NEGATIVE (negative); PH, URINE 5.5 (5-7)
[2025-01-25] MEDS ORDERED: FUROSEMIDE 40 MG/4 ML VIAL IV ONE ×2 (13:45→14:15)
[2025-01-25 14:15] LABS: BACTERIA, URINE 1+ /hpf (negative); CRYSTALS, URINE NONE SEEN (0-1+); EPITHELIAL CELLS, URINE SQUAMOUS 1+ /lpf (0-1+); RED BLOOD CELLS, URINE 0-1 /hpf (0-5); WHITE BLOOD CELLS, URINE 0-1 /HPF (0-5)
[2025-01-25 14:16] LABS: COLLECTION TYPE, URINE CLEAN CATCH; REFLEX CULTURE, URINE No (No)
--- NOTE | 2025-01-25 14:30 | NUR ---
PT GIVEN LASIX IV SLOW PUSH, URINAL AT THE BEDSIDE. CALL LIGHT WITHIN REACH.
--- NOTE | 2025-01-25 15:03 | NUR ---
HUMIDIFICATION ADDED TO NC, PT C/O NOSTRILS FEELING DRY. PT PARTICIPATING IN PHYSICAL THERAPY - 02 REQUIRMENTS INCREASE TO 5L WITH ACTIVITY, RECOVERS WITH REST ON EDGE OF BED. PT ENCOURAGED TO VOID, STATES HE DOES NOT FEEL URGE TO VOID AT THIS TIME.
--- NOTE | 2025-01-25 16:07 | NUR ---
MD NOTIFIED OF TOTAL URINE OUT PUT OF 74ML POST 120MG DOSE LASIX. POST VOID BLADDER SCAN 0ML. PT NOTED TO HAVE INCREASE WORK OF BREATHING RESTING IN BED, POSSIBLY WORSENING JVD. VS REMAIN STABLE ON MONITOR, NO CHANGES IN CARDIAC RHYTHM. NO CHANGES IN MENTAL STATUS.
--- NOTE | 2025-01-25 16:41 | NUR ---
TRANSFER PROCESS TO HIGHER LEVEL OF CARE STARTED PER MD ORDER.
--- NOTE | 2025-01-25 17:28 | NUR ---
PT UPDATED ON TRANSFER PROCESS STATUS - ALL QUESTIONS ANSWERED. DINNER PROVIDED. PT REMAINS ON 3L 02 TO SUSTAIN SPO2 >92%. GENERALIZED EDEMA NOTED TO FACE - INCREASING DEPENDENT EDEMA TO TRUNK/HIP AREA. PT DENIES COMPLAINTS, SOB OR PAIN. PT MOOD DECLINED R/T NEED FOR TRANSFER. LUNG SOUNDS DIM THROUGHOUT WITH EXP WHEEZE.
[2025-01-25] MEDS ORDERED: FUROSEMIDE 100 MG in DEXTROSE 5% 90 ML IV SCH (17:30)
[2025-01-25] MEDS ORDERED: metOLazone 5 MG TAB PO SCH (17:30)
[2025-01-25] MEDS ORDERED: LIDOCAINE 2% VISCOUS 6 ML SYR TOP ONE (18:00)
--- NOTE | 2025-01-25 18:48 | NUR ---
ROYAL INSERTION COMPLETE - PT TOLERATED WITHOUT DIFFICULTY. 14ML OF URINE IMMEDIATE RETURN. BED BATH COMPLETE WITH CLEAN GOWN PER PT REQUEST. PT DYSPNIC WITH LAYING WITH HOB LOWER FOR INSERITON. EDEMA INCREASING THROUGHOUT TRUNK AND NOW DOWN TO MID THIGHS. NEW SCROTAL AND ABD EDEMA NOTES WELL. PT ORIENTED AND VISITING WITH FAMILY ON TRANSFER ARRAINGMENT. LASIX DRIP INFUSING WITHOUT DIFFICULTY.
--- NOTE | 2025-01-25 19:36 | NUR ---
report called to receiving rn at [facility]
== END 2025-01-25 20:00 | DRG 193 ==
LOC: ED 09:43 → CCU 13:58
PROVIDERS: Emergency Medicine; ADMIT Student in an Organized Health Care Education/Training Program; ATTEND Student in an Organized Health Care Education/Training Program
DX: J18.9 Pneumonia, unspecified organism (principal); I50.33 Acute on chronic diastolic (congestive) heart failure; J96.01 Acute respiratory failure with hypoxia; J44.0 Chronic obstructive pulmonary disease with (acute) lower respiratory infection; J44.1 Chronic obstructive pulmonary disease with (acute) exacerbation; N17.9 Acute kidney failure, unspecified; E87.5 Hyperkalemia; I48.91 Unspecified atrial fibrillation; Z90.49 Acquired absence of other specified parts of digestive tract; J32.0 Chronic maxillary sinusitis; Z87.19 Personal history of other diseases of the digestive system; Z85.46 Personal history of malignant neoplasm of prostate; Z85.038 Personal history of other malignant neoplasm of large intestine; Z87.891 Personal history of nicotine dependence; Z98.890 Other specified postprocedural states; Z79.82 Long term (current) use of aspirin; Z79.899 Other long term (current) drug therapy; H66.91 Otitis media, unspecified, right ear
CPT/HCPCS: 36415; 51798; 70450; 71045; 76770; 80048; 80053; 81001; 82803; 83735; 83880; 84484; 85025; 93005; 93010; 93306; 94640; 94667; 94668; 94799; A9270; J0696; J1650; J2919; J7030

== ENCOUNTER 2025-09-24 06:55 | Day surgery (SDC) | payer OTHER ==
[~2025-09-24] VITALS: Ht 180.3 cm; Wt 78.0 kg
[~2025-09-24 06:55] MED LIST changes: +ELIQUIS5 MG PO; +LACTATED RINGER'S 1,000 ML IV SCH; +VENTOLIN HFA18 GM INH
[2025-09-24] MEDS ORDERED: IBLOOD GLUCOSE TEST STRIP 1 EA TEST VI PRN (07:00)
[2025-09-24] MEDS ORDERED: LIDOCAINE HCL 1% 5 ML SDV INJ ONE (07:00)
[2025-09-24 07:17] VITALS: BP 117/75
[2025-09-24] MEDS ORDERED: LIDOCAINE HCL 2% 5 ML SDV ONE (08:57)
[2025-09-24] MEDS ORDERED: GLUCAGON,HUMAN RECOMBINANT 1 MG/ML VIAL ONE (11:14)
--- NOTE | 2025-09-24 11:30 | NUR ---
09/24/25 1130 Florecita Muller 1127: PT ARRIVES TO PACU WITH ORAL AIRWAY IN PLACE, NO RESPONSE TO STIMULUS. PT CONNECTED TO MONITOR. REPROT RECEIVED FROM PATIENT ACCESS REPRESENTATIVE AND JAVA SOFTWARE ARCHITECT.
[2025-09-24 12:06] VITALS: BP 104/62
== END 2025-09-24 11:57 | disposition home or self-care (01) ==
LOC: OPS 06:55 → DS 06:55 → OPS 08:10 → DS 09:00 → OPS 09:55
PROVIDERS: ATTEND Surgery
PROC: 0DBE8ZX Excision of Large Intestine, Via Natural or Artificial Opening Endoscopic, Diagnostic (ICD-10-PCS; 2025-09-24)
PROC: 0DBH8ZX Excision of Cecum, Via Natural or Artificial Opening Endoscopic, Diagnostic (ICD-10-PCS; principal; 2025-09-24 09:55)
DX: Z12.11 Encounter for screening for malignant neoplasm of colon (principal); D12.0 Benign neoplasm of cecum; K64.4 Residual hemorrhoidal skin tags; K64.8 Other hemorrhoids; K57.30 Diverticulosis of large intestine without perforation or abscess without bleeding; J44.9 Chronic obstructive pulmonary disease, unspecified; I10 Essential (primary) hypertension; Z85.038 Personal history of other malignant neoplasm of large intestine; Z85.46 Personal history of malignant neoplasm of prostate; Z79.01 Long term (current) use of anticoagulants; Z79.82 Long term (current) use of aspirin; Z79.899 Other long term (current) drug therapy; Z90.49 Acquired absence of other specified parts of digestive tract; Z98.0 Intestinal bypass and anastomosis status
CPT/HCPCS: 00811; 88305; J1610; J2003; J2704; J7121